=== PATIENT | male | born 1930 | race Caucasian/White ===

== ENCOUNTER 2017-12-30 18:52 | Observation (INO) | payer OTHER ==
--- OUTSIDE RECORDS SUMMARY | 2017-12-30 18:54 | XMS REPORT ---
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 Active Medications Medication Code Code Instructions Start End Status Dosage System Date Date Amlodipine [facility] 23373796981 10-40 MG Oral Active TAKE 1 Besy-Benazepril CAPSULE BY HCl MOUTH EVERY DAY Lotrel [facility] 81055357865 10-40 MG Active TAKE 1 CAPSULE BY MOUTH EVERY DAY Singulair [facility] 48745141919 10 MG Orally Active 1 tablet in Once a day the evening Montelukast [facility] 75588887600 10 MG Oral Active 1 TABLET Sodium ORALLY ONCE DAILY FOR ALLERGIES Levothyroxine [facility] 35532221252 88 MCG Orally Active 1 tablet Sodium Once a day orally once daily Ferrous Sulfate [facility] 43946513861 325 (65 Fe) MG Active 1 tablet Orally Three times a day Aspirin Adult [facility] 81541211169 81 MG Orally Active 1 tablet Low Dose Once a day Flonase [facility] 06171622139 50 MCG/ACT Active 1 spray in Nasally Once a each nostril day Imiquimod [facility] 54605286641 5 % External Active APPLY TO THE AFFECTED AREA(S) AT BEDTIME FOR 21 DAYS THEN DISCONTINUE Results No Known Results Summary Purpose [employer]Works Submission
[2017-12-30] MEDS ORDERED: NA CHLORIDE 0.9% 1,000 ML ONE (19:27)
[2017-12-30] MEDS ORDERED: FOLIC ACID 5 MG/ML VIAL ONE (19:28)
[2017-12-30] MEDS ORDERED: NA CHLORIDE 0.9% 50 ML IV ONE (19:28)
--- NOTE | 2017-12-30 19:32 | RAD REPORT ---
EXAM DESCRIPTION: CT - Ct Stroke Brain Wo Cont - 12/30/2017 7:24 pm CLINICAL HISTORY: Weakness, dizziness, double vision CLINICAL HISTORY: None. TECHNIQUE: Axial 5 millimeter thick images of the head were obtained without IV contrast. All CT scans are performed using dose optimization technique as appropriate and may include automated exposure control or mA/KV adjustment according to patient size. FINDINGS: No intracranial hemorrhage, mass, or cerebral edema. No acute cortical based infarction is identifiable. There is no cortical edema or sulcal effacement. Patient has moderate severity atrophy with ventricular size in proportion. Moderate severity chronic ischemic changes are present. Chronic ischemic changes can be easily mask nonhemorrhagic infarction. No extra-axial fluid collections. Gr ay matter-white matter differentiation is preserved. No globe or orbital content abnormality. Visualized portions of the mastoid air cells, paranasal sinuses, and orbits are unremarkable. IMPRESSION: No hemorrhage is present and no acute cortical based infarction identifiable. Moderate severity atrophy and chronic ischemic changes are present. Chronic ischemic changes can mask nonhemorrhagic acute infarction. MR brain followup can be obtained if there is ongoing concern for acute ischemia.
[2017-12-30] MEDS ORDERED: ASPIRIN 81 MG CHEWABLE TABLET ONE (19:42)
[2017-12-30] MEDS ORDERED: CLOPIDOGREL 75 MG TABLET ONE (19:42)
--- NOTE | 2017-12-30 20:17 | RAD REPORT ---
EXAM DESCRIPTION: MRI - Brain Wo Cont - 12/30/2017 7:51 pm CLINICAL HISTORY: CVA, stroke-like symptoms, diplopia COMPARISON: CT head December 30 TECHNIQUE: Sagittal T1-weighted images were obtained along with axial PD, heavily T2-weighted and T2 -FLAIR images. Axial DWI and ADC mapping sequences were also obtained along with coronal heavily T2-w eighted images. FINDINGS: No intracranial hemorrhage, mass or acute infarction. There is no edema or shift of midlin e structures. No extra-axial fluid collections. Vernon-matter/white matter junction is preserved. Signa l voids are seen as a normal finding in the major intracranial vessels. Moderate atrophy and chronic ischemic changes are again noted. Ventricular size is in proportion. No globe or orbital content abnormality. No sella or supra sella abnormality. Mastoid air cells and paranasal sinuses are clear. IMPRESSION: No acute infarction change. No hemorrhage, mass or acute intracranial finding. Moderate severity atrophy and chronic ischemic change.
[2017-12-30 20:29] LABS: Urine Blood NEGATIVE (NEG); Urine Glucose NEGATIVE (NEG); Urine Protein 2+ (NEG); Urine Specific Gravity 1.025 (1.005-1.030)
--- NOTE | 2017-12-30 20:48 | RAD REPORT ---
EXAM DESCRIPTION: RAD - Chest Single View - 12/30/2017 8:13 pm CLINICAL HISTORY: Code stroke chest film, double vision COMPARISON: September 2004 TECHNIQUE: AP portable chest image was obtained 1913 hours . FINDINGS: No failure, infiltrate or mass. Lung markings are prominent, mildly progressive from 2004. An acute interstitial process is unlikely. Minimal interstitial edema or infiltrate could be masked by the chronic pattern. Heart and vasculature are normal. No measurable pleural effusion and no pneum othorax. No gross bony abnormality seen. No acute aortic findings suspected. IMPRESSION: No acute cardiopulmonary process suspected.
[2017-12-30 20:50] LABS: Absolute Lymphocytes (CBC) 1.4 K/uL (0.7-4.9); Absolute Monocytes 3.7 K/uL (0.1-1.3); Absolute Neutrophil 12.5 K/uL (1.8-8.0); Basophils % 0.7 % (0-1.3); Eosinophils % 0.7 % (0-4.4); Hematocrit 40.5 % (39.6-49.0); MCH 22.8 pg (27.0-35.0); MCV 69.8 fL (80-100); MPV 9.1 fL (7.6-11.3); Monocytes % 20.7 % (3.3-12.3); RBC Red Blood Cell Count 5.81 M/uL (4.33-5.43)
[2017-12-30 20:56] LABS: Protime INR 1.16
[2017-12-30 21:02] LABS: ALT/SGPT 22 U/L (12-78); AST/SGOT 24 U/L (15-37); Albumin 4.3 g/dL (3.4-5.0); Alkaline Phosphatase 91 U/L (45-117); BUN Blood Urea Nitrogen 26 mg/dL (7-18); Bicarbonate 28 mmol/L (21-32); Bilirubin Direct < 0.1 mg/dL (0-0.2); Bilirubin Total 0.4 mg/dL (0.2-1.0); CKMB Creatine Kinase MB < 1.0 ng/mL (0.3-3.6); Creatine Phosphokinase 25 U/L (39-308); Glucose Level 114 mg/dL (74-106); Magnesium 2.7 mg/dL (1.8-2.4); NT PRO-BNP 973 pg/mL (<450); Potassium 4.7 mmol/L (3.5-5.1); Protein, Total 8.2 g/dL (6.4-8.2); Sodium Level 141 mmol/L (136-145)
[2017-12-30] MEDS ORDERED: CEFTRIAXONE/SWI 1gm 1 GM/10 ML SYR ONE (21:15)
[2017-12-30 21:30] LABS: Blood Morphology Comment NOTED (NOT SEEN); Platelet Estimate ADEQ
--- NOTE | 2017-12-30 21:37 | EDPHYS ---
Physician Documentation [facility] Name: Pushpa Smith Age: 87 yrs Sex: Male : 1930 Arrival Date: 12/30/2017 Time: 18:56 Bed 20 Private MD: Delgado Patel ED Physician Remigio Bean HPI: 12/30 19:13 This 87 yrs old Male presents to ER via Unassigned with complaints of gabino Dizziness, DOUBLE VISION. 19:13 The patient presents with dizziness, lightheadedness. Onset: The symptoms/episode gabino began/occurred just prior to arrival. Context: occurred while the patient was sitting in a car. Modifying factors: The symptoms are alleviated by nothing, the symptoms are aggravated by nothing. Associated signs and symptoms: The patient has no apparent associated signs or symptoms. Severity of symptoms: At their worst the symptoms were mild in the emergency department the symptoms are unchanged. Patient's baseline: Neuro: alert and fully oriented. The patient has not experienced similar symptoms in the past. Historical: - Allergies: 19:17 No Known Allergies; bb - Home Meds: 19:17 HTN med unknown [Active]; Thyroid med unknown [Active]; bb - PMHx: 19:17 Cancer; Hypertension; Hypothyroidism; bb - PSHx: 19:17 Appendectomy; surgery to face for removal of lymph nodes; bb - Immunization history:: Adult Immunizations up to date. - Social history:: Smoking status: Patient/guardian denies using tobacco, Patient uses alcohol, but reports only rare drinking. - Family history:: not pertinent. - Ebola Screening: : No symptoms or risks identified at this time. ROS: 19:13 Constitutional: Negative for fever, chills, and weight loss, Eyes: Negative for injury, gabino pain, redness, and discharge, ENT: Negative for injury, pain, and discharge, Neck: Negative for injury, pain, and swelling, Cardiovascular: Negative for chest pain, palpitations, and edema, Respiratory: Negative for shortness of breath, cough, wheezing, and pleuritic chest pain, Abdomen/GI: Negative for abdominal pain, nausea, vomiting, diarrhea, and constipation, Back: Negative for injury and pain, : Negative for injury, bleeding, discharge, and swelling, MS/Extremity: Negative for injury and deformity, Skin: Negative for injury, rash, and discoloration, Psych: Negative for depression, anxiety, suicide ideation, homicidal ideation, and hallucinations, Allergy/Immunology: Negative for hives, rash, and allergies, Endocrine: Negative for neck swelling, polydipsia, polyuria, polyphagia, and marked weight changes, Hematologic/Lymphatic: Negative for swollen nodes, abnormal bleeding, and unusual bruising. 19:13 Neuro: Positive for dizziness, visual changes. Exam: 19:13 Constitutional: This is a well developed, well nourished patient who is awake, alert, gabino and in no acute distress. Head/Face: Normocephalic, atraumatic. Eyes: Pupils equal round and reactive to light, extra-ocular motions intact. Lids and lashes normal. Conjunctiva and sclera are non-icteric and not injected. Cornea within normal limits. Periorbital areas with no swelling, redness, or edema. ENT: Nares patent. No nasal discharge, no septal abnormalities noted. Tympanic membranes are normal and external auditory canals are clear. Oropharynx with no redness, swelling, or masses, exudates, or evidence of obstruction, uvula midline. Mucous membranes moist. Neck: Trachea midline, no thyromegaly or masses palpated, and no cervical lymphadenopathy. Supple, full range of motion without nuchal rigidity, or vertebral point tenderness. No Meningismus. Chest/axilla: Normal chest wall appearance and motion. Nontender with no deformity. No lesions are appreciated. Cardiovascular: Regular rate and rhythm with a normal S1 and S2. No gallops, murmurs, or rubs. Normal PMI, no JVD. No pulse deficits. Respiratory: Lungs have equal breath sounds bilaterally, clear to auscultation and percussion. No rales, rhonchi or wheezes noted. No increased work of breathing, no retractions or nasal flaring. Abdomen/GI: Soft, non-tender, with normal bowel sounds. No distension or tympany. No guarding or rebound. No evidence of tenderness throughout. Back: No spinal tenderness. No costovertebral tenderness. Full range of motion. Male : Normal genitalia with no discharge or lesions. Skin: Warm, dry with normal turgor. Normal color with no rashes, no lesions, and no evidence of cellulitis. MS/ Extremity: Pulses equal, no cyanosis. Neurovascular intact. Full, normal range of motion. Neuro: Awake and alert, GCS 15, oriented to person, place, time, and situation. Cranial nerves II-XII grossly intact. Motor strength 5/5 in all extremities. Sensory grossly intact. Cerebellar exam normal. Normal gait. Psych: Awake, alert, with orientation to person, place and time. Behavior, mood, and affect are within normal limits. 19:16 Neuro: Mentation: is normal, appropriate for stated age, no acute changes, Memory: is gabino normal, appropriate for stated age, no acute changes, Cranial nerves: grossly normal, is grossly normal based on the patient's age, no acute changes, Cerebellar function: is grossly normal, is grossly normal based on the patient's age, no acute changes, Motor: is normal, is grossly normal based on the patient's age, Sensation: is normal, no obvious gross deficits, appropriate Gait: not applicable unable to assess, is steady, Deep tendon reflexes are normal, 2+ (normal) in the bilateral brachioradialis, bicep, tricep and patellar and Achilles tendons, Babinski testing is normal, seizure activity, is not displayed by the patient. 19:18 Neuro: Orientation: is normal, appropriate for stated age, no acute changes, to person, gabino place, time \T\ situation. pt at baseline. not a tpa candidate. Vital Signs: 19:17 BP 177 / 70; Pulse 74; Resp 16 S; Temp 98.8(O); Pulse Ox 97% on R/A; Weight 72.57 kg bb (R); Height 5 ft. 9 in. (175.26 cm) (R); Pain 0/10; 20:29 BP 173 / 81; Pulse 67; Resp 16; Pulse Ox 99% on R/A; Pain 0/10; ak1 21:20 BP 158 / 57; Pulse 84; Resp 19; Pulse Ox 100% on R/A; Pain 0/10; ak1 19:17 Body Mass Index 23.63 (72.57 kg, 175.26 cm) bb NIH Stroke Scale Scores: 19:16 NIHSS Score: 0 gabino 19:35 NIHSS Score: 0 ak1 MDM: 19:07 Patient medically screened. [facility] 19:20 Data reviewed: vital signs, nurses notes, lab test result(s), EKG, radiologic studies, gabino CT scan, MRI, plain films. 12/30 19:13 Order name: Basic Metabolic Panel; Complete Time: 21:34 [facility] 12/30 19:13 Order name: CBC with Diff; Complete Time: 21:34 [facility] 12/30 19:13 Order name: Ckmb; Complete Time: 21:34 [facility] 12/30 19:13 Order name: CPK; Complete Time: 21:34 [facility] 12/30 19:13 Order name: LFT's; Complete Time: 21:34 [facility] 12/30 19:13 Order name: Magnesium; Complete Time: 21:34 [facility] 12/30 19:13 Order name: NT PRO-BNP; Complete Time: 21:34 [facility] 12/30 19:13 Order name: PT-INR; Complete Time: 21:34 [facility] 12/30 19:13 Order name: Ptt, Activated; Complete Time: 21:34 [facility] 12/30 19:13 Order name: Troponin (emerg Dept Use Only); Complete Time: 20:57 [facility] 12/30 19:13 Order name: Urine Culture [facility] 12/30 20:26 Order name: Urine Dipstick--Ancillary (enter results); Complete Time: 20:57 12/30 20:53 Order name: Manual Differential; Complete Time: 21:34 [facility] 12/30 20:59 Order name: Blood Culture Adult (2) [facility] 12/30 19:13 Order name: XRAY Chest (1 view); Complete Time: 20:57 [facility] 12/30 19:13 Order name: CT Stroke Brain w/o Contrast; Complete Time: 19:51 [facility] 12/30 19:13 Order name: MRI - Brain Wo Cont; Complete Time: 20:24 [facility] 12/30 21:42 Order name: Basic Metabolic Panel [facility] 12/30 21:42 Order name: Basic Metabolic Panel [facility] 12/30 21:42 Order name: CBC with Automated Diff [facility] 12/30 21:42 Order name: CBC with Automated Diff [facility] 12/30 21:42 Order name: Troponin I [facility] 12/30 21:42 Order name: Troponin I [facility] 12/30 21:42 Order name: Troponin I [facility] 12/30 21:51 Order name: US Rp Exam Complete [facility] 12/30 19:13 Order name: EKG; Complete Time: 19:14 [facility] 12/30 19:13 Order name: Cardiac monitoring; Complete Time: 20:23 [facility] 12/30 19:13 Order name: EKG - Nurse/Tech; Complete Time: 20:41 [facility] 12/30 19:13 Order name: IV Saline Lock; Complete Time: 20:23 [facility] 12/30 19:13 Order name: Labs collected and sent; Complete Time: 20:23 [facility] 12/30 19:13 Order name: O2 Per Protocol; Complete Time: 19:19 [facility] 12/30 19:13 Order name: O2 Sat Monitoring; Complete Time: 19:19 [facility] 12/30 19:13 Order name: Urine Dipstick-Ancillary (obtain specimen); Complete Time: 20:23 [facility] 12/30 21:42 Order name: CONS Physician Consult EDMS 12/30 21:42 Order name: Regular EDMS 12/30 21:42 Order name: EKG Electrocardiogram EDMS 12/30 21:42 Order name: EKG Electrocardiogram EDMS 12/30 21:42 Order name: EKG Electrocardiogram EDMS 12/30 21:42 Order name: EKG Electrocardiogram EDMS Administered Medications: 20:22 Drug: NS 0.9% 1000 ml Route: IV; Rate: 1 bolus; Site: right antecubital; ak1 22:37 Follow up: IV Status: Completed infusion ak1 20:22 Drug: Aspirin 81 mg Route: PO; ak1 20:41 Follow up: Response: No adverse reaction ak1 20:22 Drug: PlaVIX 75 mg Route: PO; ak1 20:41 Follow up: Response: No adverse reaction ak1 20:23 Drug: foLIC Acid 1 mg Route: IVPB; Site: right antecubital; ak1 20:41 Follow up: IV Status: Completed infusion ak1 21:16 Drug: Rocephin - (cefTRIAXone) 1 grams Route: IVPB; Infused Over: 30 mins; Site: right ak1 antecubital; 21:41 Follow up: IV Status: Completed infusion ak1 Point of Care Testing: Blood Glucose: 20:29 Blood Glucose: 107 mg/dL; ak1 Ranges: Critical Glucose Levels:Adult <50 mg/dl or >400 mg/dl <40 mg/dl or >180 mg/dl Disposition: 12/30/17 21:36 Hospitalization ordered by Delgado Patel for Observation. Preliminary diagnosis are Diplopia, Elevated white blood cell count, Unspecified kidney failure. - Bed requested for Telemetry/MedSurg (observation). - Status is Observation. ak1 - Condition is Stable. - Problem is new. - Symptoms have improved. UTI on Admission? No NIH Stroke Scale - NIH Stroke Score Date: 12/30/2017 Time: 19:16 Total Score = 0 1a. Level of Consciousness (LOC) - 0(Alert) 1b. Level of Consciousness (LOC) (Year \T\ Age) - 0(Both) 1c. LOC Commands (Open \T\ Closes Eyes/Veterinary Inspector) - 0(Both) 2. Best Gaze (Lateral Gaze Paresis) - 0(Normal) 3. Visual Field Loss - 0(No visual loss) 4. Facial Palsy - 0(Normal) 5a. Left Arm: Motor (10-second hold) - 0(No drift) 5b. Right Arm: Motor (10-second hold) - 0(No drift) 6a. Left Leg: Motor (5-second hold - always test supine) - 0(No drift) 6b. Right Leg: Motor (5-second hold - always test supine) - 0(No drift) 7. Limb Ataxia (finger/nose \T\ heel/gunter - test with eyes open) - 0(Absent) 8. Sensory Loss (pinprick arms/legs/face) - 0(Normal) 9. Best Language: Aphasia (description/naming/reading) - 0(No aphasia) 10. Dysarthria (speech clarity - read or repeat words) - 0(Normal) 11. Extinction and Inattention (visual/tactile/auditory/spatial/personal) - 0(No abnormality) Initials: [facility] NIH Stroke Scale - NIH Stroke Score Date: 12/30/2017 Time: 19:35 Total Score = 0 1a. Level of Consciousness (LOC) - 0(Alert) 1b. Level of Consciousness (LOC) (Year \T\ Age) - 0(Both) 1c. LOC Commands (Open \T\ Closes Eyes/Veterinary Inspector) - 0(Both) 2. Best Gaze (Lateral Gaze Paresis) - 0(Normal) 3. Visual Field Loss - 0(No visual loss) 4. Facial Palsy - 0(Normal) 5a. Left Arm: Motor (10-second hold) - 0(No drift) 5b. Right Arm: Motor (10-second hold) - 0(No drift) 6a. Left Leg: Motor (5-second hold - always test supine) - 0(No drift) 6b. Right Leg: Motor (5-second hold - always test supine) - 0(No drift) 7. Limb Ataxia (finger/nose \T\ heel/gunter - test with eyes open) - 0(Absent) 8. Sensory Loss (pinprick arms/legs/face) - 0(Normal) 9. Best Language: Aphasia (description/naming/reading) - 0(No aphasia) 10. Dysarthria (speech clarity - read or repeat words) - 0(Normal) 11. Extinction and Inattention (visual/tactile/auditory/spatial/personal) - 0(No abnormality) Initials: ak1 Signatures: Dispatcher [employer] EDMS Remigio Bean MD MD cha Ballard, Brenda RN RN Sejal Lopez RN RN Sarah Wolf mt Corrections: (The following items were deleted from the chart) 21:51 21:36 Hospitalization Ordered by Delgado Patel MD for Observation. Preliminary mt diagnosis is Diplopia; Elevated white blood cell count; Unspecified kidney failure. Bed requested for Telemetry/MedSurg (observation). Status is Observation. Condition is Stable. Problem is new. Symptoms have improved. UTI on Admission? No. [facility] 22:36 21:51 12/30/2017 21:36 Hospitalization Ordered by Delgado Patel MD for ak1 Observation. Preliminary diagnosis is Diplopia; Elevated white blood cell count; Unspecified kidney failure. Bed requested for Telemetry/MedSurg (observation). Status is Observation. Condition is Stable. Problem is new. Symptoms have improved. UTI on Admission? No. mt
--- NOTE | 2017-12-30 21:37 | ER ---
Nurse's Notes [facility] Name: Pushpa Smith Age: 87 yrs Sex: Male : 1930 Arrival Date: 12/30/2017 Time: 18:56 Bed 20 Private MD: Delgado Patel Diagnosis: Diplopia;Elevated white blood cell count;Unspecified kidney failure Presentation: 12/30 19:05 Presenting complaint: Patient states: he had eaten lunch with a friend then they were bb sitting in the truck and he started c/o feeling hot, light-headed and was having double vision pt states dbl [place] had resolved on his arrival to ED. Transition of care: patient was not received from another setting of care. Onset of symptoms was December 30, 2017. Risk Assessment: Do you want to hurt yourself or someone else? Patient reports no desire to harm self or others. Initial Sepsis Screen: Does the patient meet any 2 criteria? No. Patient's initial sepsis screen is negative. Does the patient have a suspected source of infection? No. Patient's initial sepsis screen is negative. Care prior to arrival: None. 19:05 Method Of Arrival: Ambulatory bb 19:05 Acuity: LUISITO 2 bb Historical: - Allergies: 19:17 No Known Allergies; bb - Home Meds: 19:17 HTN med unknown [Active]; Thyroid med unknown [Active]; bb - PMHx: 19:17 Cancer; Hypertension; Hypothyroidism; bb - PSHx: 19:17 Appendectomy; surgery to face for removal of lymph nodes; bb - Immunization history:: Adult Immunizations up to date. - Social history:: Smoking status: Patient/guardian denies using tobacco, Patient uses alcohol, but reports only rare drinking. - Family history:: not pertinent. - Ebola Screening: : No symptoms or risks identified at this time. Screenin:35 Abuse screen: Denies threats or abuse. Denies injuries from another. Nutritional ak1 screening: No deficits noted. Tuberculosis screening: No symptoms or risk factors identified. The patient has not been NPO before screening. The patient is alert, able to follow commands. The patient does not exhibit slurred or garbled speech The patient is not exhibiting difficulty speaking. The patient does not exhibit difficulty understanding words. The patient is able to swallow own secretions with no drooling or need for suction. Patient tolerated one teaspoon of water. No drooling, immediate coughing, gurgling, or clearing of the throat was noted. The patient tolerated 90mL of water. No drooling, immediate coughing, gurgling, or clearing of the throat was noted. The patient passed the bedside swallow screening. Oral medications may be given as ordered. Contact Physician for further diet orders. Provider notified of bedside swallow screening results: Remigio Bean MD. Fall Risk None identified. Assessment: 19:05 General: Appears in no apparent distress. Behavior is calm, cooperative. Pain: Denies bb pain. Neuro: Level of Consciousness is awake, alert, obeys commands, Oriented to person, place, time, situation, Speech is normal. 19:36 General: Appears in no apparent distress. Behavior is calm, cooperative. Pain: Denies ak1 pain. Neuro: Level of Consciousness is awake, alert, obeys commands, Oriented to person, place, time, situation, Loan Processing Supervisor are equal bilaterally Moves all extremities. Gait is steady, Speech is normal, Facial symmetry appears normal, Pupils are PERRLA. Cardiovascular: No deficits noted. Respiratory: No deficits noted. GI: No signs and/or symptoms were reported involving the gastrointestinal system. : No signs and/or symptoms were reported regarding the genitourinary system. EENT: No signs and/or symptoms were reported regarding the EENT system. Derm: No signs and/or symptoms reported regarding the dermatologic system. Musculoskeletal: No signs and/or symptoms reported regarding the musculoskeletal system. 20:06 Reassessment: pt remains in CT and MRI. ak1 21:19 Reassessment: Patient appears in no apparent distress at this time. No changes from ak1 previously documented assessment. Patient is alert, oriented x 3, equal unlabored respirations, skin warm/dry/pink. Patient states feeling better. Patient states symptoms have improved. Vital Signs: 19:17 BP 177 / 70; Pulse 74; Resp 16 S; Temp 98.8(O); Pulse Ox 97% on R/A; Weight 72.57 kg bb (R); Height 5 ft. 9 in. (175.26 cm) (R); Pain 0/10; 20:29 BP 173 / 81; Pulse 67; Resp 16; Pulse Ox 99% on R/A; Pain 0/10; ak1 21:20 BP 158 / 57; Pulse 84; Resp 19; Pulse Ox 100% on R/A; Pain 0/10; ak1 19:17 Body Mass Index 23.63 (72.57 kg, 175.26 cm) bb NIH Stroke Scale Scores: 19:16 NIHSS Score: 0 gabino 19:35 NIHSS Score: 0 ak1 ED Course: 18:56 Patient arrived in ED. sb2 18:56 Delgado Patel MD is Private Physician. sb2 19:04 Sejal Poon, RN is Primary Nurse. ak1 19:05 Arm band placed on Patient placed in an exam room, on a stretcher. bb 19:07 Remigio Bean MD is Attending Physician. gabino 19:[address] kw1 19:16 Triage completed. bb 19:21 CT completed. kw1 19:24 CT Stroke Brain w/o Contrast In Process Unspecified. EDMS 19:24 Patient moved to MRI. kw1 19:35 Patient has correct armband on for positive identification. Placed in gown. Bed in low ak1 position. Call light in reach. Side rails up X 1. conveyor monitor on. Pulse ox on. NIBP on. 19:50 MRI - Brain Wo Cont In Process Unspecified. EDMS 19:50 MRI completed. Patient tolerated well. Patient moved to radiology via stretcher. em2 20:11 X-ray completed. Patient tolerated procedure well. Patient moved back from radiology. mh1 20:11 XRAY Chest (1 view) In Process Unspecified. EDMS 20:24 Inserted saline lock: 20 gauge in right antecubital area, using aseptic technique. ak1 Blood collected. 21:35 Delgado Patel MD is Hospitalizing Provider. gabino 21:40 No provider procedures requiring assistance completed. Patient admitted, IV remains in ak1 place. Administered Medications: 20:22 Drug: NS 0.9% 1000 ml Route: IV; Rate: 1 bolus; Site: right antecubital; ak1 22:37 Follow up: IV Status: Completed infusion ak1 20:22 Drug: Aspirin 81 mg Route: PO; ak1 20:41 Follow up: Response: No adverse reaction ak1 20:22 Drug: PlaVIX 75 mg Route: PO; ak1 20:41 Follow up: Response: No adverse reaction ak1 20:23 Drug: foLIC Acid 1 mg Route: IVPB; Site: right antecubital; ak1 20:41 Follow up: IV Status: Completed infusion ak1 21:16 Drug: Rocephin - (cefTRIAXone) 1 grams Route: IVPB; Infused Over: 30 mins; Site: right ak1 antecubital; 21:41 Follow up: IV Status: Completed infusion ak1 Point of Care Testing: Blood Glucose: 20:29 Blood Glucose: 107 mg/dL; ak1 Ranges: Outcome: 21:36 Decision to Hospitalize by Provider. [facility] 22:35 Admitted to Tele accompanied by tech, family with patient, via wheelchair, room 410, ak1 with chart, Report called to Desi 22:35 Condition: good 22:35 Discharge instructions given to Instructed on the need for admit. 22:36 Patient left the ED. ak1 NIH Stroke Scale - NIH Stroke Score Date: 12/30/2017 Time: 19:16 Total Score = 0 1a. Level of Consciousness (LOC) - 0(Alert) 1b. Level of Consciousness (LOC) (Year \T\ Age) - 0(Both) 1c. LOC Commands (Open \T\ Closes Eyes/Tilt Wall Supervisor) - 0(Both) 2. Best Gaze (Lateral Gaze Paresis) - 0(Normal) 3. Visual Field Loss - 0(No visual loss) 4. Facial Palsy - 0(Normal) 5a. Left Arm: Motor (10-second hold) - 0(No drift) 5b. Right Arm: Motor (10-second hold) - 0(No drift) 6a. Left Leg: Motor (5-second hold - always test supine) - 0(No drift) 6b. Right Leg: Motor (5-second hold - always test supine) - 0(No drift) 7. Limb Ataxia (finger/nose \T\ heel/gunter - test with eyes open) - 0(Absent) 8. Sensory Loss (pinprick arms/legs/face) - 0(Normal) 9. Best Language: Aphasia (description/naming/reading) - 0(No aphasia) 10. Dysarthria (speech clarity - read or repeat words) - 0(Normal) 11. Extinction and Inattention (visual/tactile/auditory/spatial/personal) - 0(No abnormality) Initials: [facility] NIH Stroke Scale - NIH Stroke Score Date: 12/30/2017 Time: 19:35 Total Score = 0 1a. Level of Consciousness (LOC) - 0(Alert) 1b. Level of Consciousness (LOC) (Year \T\ Age) - 0(Both) 1c. LOC Commands (Open \T\ Closes Eyes/Tilt Wall Supervisor) - 0(Both) 2. Best Gaze (Lateral Gaze Paresis) - 0(Normal) 3. Visual Field Loss - 0(No visual loss) 4. Facial Palsy - 0(Normal) 5a. Left Arm: Motor (10-second hold) - 0(No drift) 5b. Right Arm: Motor (10-second hold) - 0(No drift) 6a. Left Leg: Motor (5-second hold - always test supine) - 0(No drift) 6b. Right Leg: Motor (5-second hold - always test supine) - 0(No drift) 7. Limb Ataxia (finger/nose \T\ heel/gunter - test with eyes open) - 0(Absent) 8. Sensory Loss (pinprick arms/legs/face) - 0(Normal) 9. Best Language: Aphasia (description/naming/reading) - 0(No aphasia) 10. Dysarthria (speech clarity - read or repeat words) - 0(Normal) 11. Extinction and Inattention (visual/tactile/auditory/spatial/personal) - 0(No abnormality) Initials: ak1 Signatures: Dispatcher [employer] Remigio Davison MD MD cha Harvey, Martha 1 Sveta Smith, Fred Montenegro RN, Amber, RN RN ak1 Lory De La Garza1 Nimisha Pitts2
[2017-12-30] MEDS ORDERED: ACETAMINOPHEN 500 MG TAB PO PRN (21:39)
[2017-12-30] MEDS ORDERED: ONDANSETRON 4 MG/2 ML VIAL IV PRN (21:39)
[2017-12-30] MEDS: NA CHLORIDE 0.9% 1,000 ML IV SCH (23:29)
[2017-12-31 04:38] LABS: Absolute Lymphocytes (CBC) 2.2 K/uL (0.7-4.9); Absolute Monocytes 3.6 K/uL (0.1-1.3); Absolute Neutrophil 11.9 K/uL (1.8-8.0); Basophils % 0.6 % (0-1.3); Eosinophils % 0.8 % (0-4.4); Hematocrit 37.2 % (39.6-49.0); Lymphocytes % 12.3 % (15.3-44.8); MCH 22.6 pg (27.0-35.0); MCV 68.9 fL (80-100); MPV 9.1 fL (7.6-11.3); RBC Red Blood Cell Count 5.39 M/uL (4.33-5.43)
[2017-12-31 05:39] LABS: Potassium 4.8 mmol/L (3.5-5.1)
--- NOTE | 2017-12-31 06:20 | RAD REPORT ---
EXAM DESCRIPTION: US - Renal Ultrasound-Complete - 12/30/2017 10:26 pm CLINICAL HISTORY: Renal failure A preliminary report was provided at the time of the study and reviewed prior to final dictation. COMPARISON: December 2013 FINDINGS: The right kidney measures 10.9 x 5.6 x 4.7 cm. The left kidney measures 10.5 x 5.8 x 4.6 cm. Renal cortical thickness is normal. There is a slight increase in cortical echogenicity. This is nonspecific but can indicate medical renal disease. No hydronephrosis or suspicious renal mass. A 3. 5 centimeter thin-walled anechoic cyst is present lateral left kidney. An additional 8 millimeter co rtical cyst is present upper pole left kidney. These are new or larger from 2014 but still show benig n characteristics. No bladder wall thickening or mass. No intraluminal stone or mass. IMPRESSION: No hydronephrosis or suspicious renal mass. Benign left renal cysts. No other significant findings.
[2017-12-31] MEDS ORDERED: CLOPIDOGREL 75 MG TABLET PO SCH (09:00)
[2017-12-31] MEDS ORDERED: ASPIRIN EC 81 MG TAB PO SCH (09:00)
[2017-12-31] MEDS ORDERED: FOLIC ACID 1 MG in NA CHLORIDE 0.9% 50 ML IV SCH (09:00)
--- NOTE | 2017-12-31 09:38 | EKG ---
Test Date: 2017-12-30 Test Time: 20:34:33 Room Manager: ALBINA MEASUREMENT RESULTS: Intervals: Rate: 66 TX: 210 QRSD: 100 QT: 408 QTc: 427 [place]: P: 63 TX: 210 QRS: -47 T: 85 INTERPRETIVE STATEMENTS: Sinus rhythm with 1st degree AV block Left axis deviation Moderate voltage criteria for LVH, may be normal variant Anterior infarct Abnormal ECG Compared to ECG 11/30/2012 08:33:21 no significant change from previous ECG Electronically Signed On 12-31-17 09:38:30 CDT by Nathen Garvey
--- NOTE | 2017-12-31 09:38 | EKG ---
Test Date: 2017-12-31 Test Time: 07:27:07 Compounding Technician: CANELO MEASUREMENT RESULTS: Intervals: Rate: 63 ND: 214 QRSD: 90 QT: 406 QTc: 415 [place]: P: 48 ND: 214 QRS: -41 T: 100 INTERPRETIVE STATEMENTS: Sinus rhythm with marked sinus arrhythmia with 1st degree AV block Left axis deviation Anterior infarct, cited 2013 Abnormal ECG Compared to ECG 11/30/2012 08:33:21 no significant change from previous ECG Electronically Signed On 12-31-17 09:37:46 CDT by Nathen Garvey
--- NOTE | 2017-12-31 10:02 | P.SSS ---
Patient History Date of Service: 12/31/17 Primary Care Provider: Amanda Reason for admission: Diplopia History of Present Illness: Patient was driving home last night. [place] some dizziness and pulled. Over he was having some diplopia for 15 min. He decided to have his friend bring him to the ER. He has never had this before. He has not had any other symptoms since the initial presentation. CT and MRI are negative Allergies No Known Allergies Allergy (Unverified 12/30/17 21:46) Home medications list reviewed: Yes Home Medications: Levothyroxine [Synthroid*] 1 tab PO DAILY 12/30/17 Aspirin [Aspirin EC 81 MG] 1 tab PO DAILY #90 tablet. 12/31/17 - Past Medical/Surgical History Has patient received pneumonia vaccine in the past: Yes Diabetic: No -: HTN -: hypothyroidism -: multiple skin cancer -: hep C - Social History Smoking Status: Current every day smoker Alcohol use: No CD- Drugs: No Place of Residence: Home Review of Systems 10-point ROS is otherwise unremarkable General: Other (diplopia) Physical Examination - Vital Signs Temperature: 97.3 F Blood Pressure: 168/72 Pulse: 69 Respirations: 18 Pulse Ox (%): 96 - Physical Exam General: Alert, In no apparent distress HEENT: Atraumatic, PERRLA, Mucous membr. moist/pink, EOMI, Sclerae nonicteric Neck: Supple, 2+ carotid pulse no bruit, No LAD, Without JVD or thyroid abnormality Respiratory: Clear to auscultation bilaterally, Normal air movement Cardiovascular: Regular rate/rhythm, Normal S1 S2 Gastrointestinal: Normal bowel sounds, No tenderness Musculoskeletal: No tenderness Integumentary: No rashes Neurological: Normal gait, Normal speech, Normal strength at 5/5 x4 extr, Normal tone, Normal affect Lymphatics: No axilla or inguinal lymphadenopathy - Studies Laboratory Data (last 24 hrs) 12/30/17 20:15: PT 13.7 H, INR 1.16, APTT 31.1 12/30/17 20:15: WBC 17.9 H, Hgb 13.2 L, Hct 40.5, Plt Count 650 H 12/30/17 20:15: Sodium 141, Potassium 4.7, BUN 26 H, Creatinine 2.00 H, Glucose 114 H, Magnesium 2.7 H, Total Bilirubin 0.4, AST 24, ALT 22, Alkaline Phosphatase 91 - Diagnosis (Problem(s)) (1) Diplopia Onset Date: 12/31/17 Current Visit: Yes Status: Acute Plan: Patient has no symptoms. We can complete the work up as an outpatient. Will have Dr. Mckinnon look at the patient. If no complaints we can discharge and have him follow up as an outpatient. - Disposition Disposition: ROUTINE DISCHARGE Condition: GOOD Diet: Regular Activity: Ad alex Physician Review: Patient Assessed, Agree with Above Assessment and Plan Critical Care: No Time Spent Managing Pts Care (In Minutes): 30
[2017-12-31] MEDS: NA CHLORIDE 0.9% 1,000 ML IV SCH (10:10)
[2017-12-31] MEDS ORDERED: ENOXAPARIN 30 MG/0.3 ML SQ SCH (17:00)
[2018-01-01] MEDS ORDERED: PANTOPRAZOLE 40MG TABLET PO SCH (06:30)
== END 2017-12-31 14:31 | disposition home or self-care (01) ==
LOC: ER 18:52 → ERHOLD 21:37 → 4TH 21:54
PROVIDERS: ADMIT Internal Medicine; ATTEND Internal Medicine
DX: H53.2 Diplopia (principal); I10 Essential (primary) hypertension; E03.9 Hypothyroidism, unspecified; B18.2 Chronic viral hepatitis C; F17.200 Nicotine dependence, unspecified, uncomplicated; I44.0 Atrioventricular block, first degree; R42 Dizziness and giddiness; R29.700 NIHSS score 0; N19 Unspecified kidney failure; D72.829 Elevated white blood cell count, unspecified; Z79.82 Long term (current) use of aspirin
CPT/HCPCS: 36415; 70450; 70551; 71045; 76770; 80048 ×2; 80076; 81003; 82550; 82553; 82962; 83735; 83880; 84484 ×3; 85025 ×2; 85610; 85730; 87040 ×2; 87086; 87088; 93005 ×2; 96361; 96365; 96367; 99285; G0378 ×2; J0696; J7030 ×3

== ENCOUNTER 2019-04-21 10:57 | Inpatient (IN) | payer OTHER ==
[2019-04-21 11:56] LABS: Absolute Lymphocytes (CBC) 1.9 K/uL (0.7-4.9); Basophils % 0.6 % (0-1.3); Hematocrit 27.4 % (39.6-49.0); Lymphocytes % 3.2 % (15.3-44.8); MPV 8.5 fL (7.6-11.3); RBC Red Blood Cell Count 3.63 M/uL (4.33-5.43)
[2019-04-21 12:03] LABS: Protime INR 1.25
[2019-04-21 12:25] LABS: ALT/SGPT 34 U/L (12-78); AST/SGOT 28 U/L (15-37); Albumin 2.9 g/dL (3.4-5.0); Alkaline Phosphatase 150 U/L (45-117); BUN Blood Urea Nitrogen 45 mg/dL (7-18); Bicarbonate 21 mmol/L (21-32); Bilirubin Direct 0.1 mg/dL (0-0.2); Bilirubin Total 0.3 mg/dL (0.2-1.0); Glucose Level 106 mg/dL (74-106); Magnesium 2.5 mg/dL (1.8-2.4); NT PRO-BNP 4394 pg/mL (<450); Protein, Total 7.1 g/dL (6.4-8.2); Sodium Level 139 mmol/L (136-145); Troponin (Emerg Dept Use Only) < 0.02 ng/mL (0.0-0.045)
--- NOTE | 2019-04-21 12:26 | RAD REPORT ---
EXAM DESCRIPTION: Arnaldo Single View04/21/2019 12:05 pm CLINICAL HISTORY: cough COMPARISON: 2018 FINDINGS: Moderate left basilar opacity. The right lung appears clear of acute infiltrate Lungs are hyperaerated Acute infiltrate. The heart is normal size IMPRESSION: Moderate left basilar opacity consistent with pneumonia. This should be followed until i t has cleared to help exclude a post obstructive process/underlying mass
[2019-04-21 12:29] LABS: Potassium 6.3 mmol/L (3.5-5.1)
--- NOTE | 2019-04-21 12:46 | EKG ---
Test Date: 2019-04-21 Test Time: 11:54:45 Loan Operations Specialist: CANELO MEASUREMENT RESULTS: Intervals: Rate: 68 GA: 202 QRSD: 86 QT: 392 QTc: 416 [place]: P: 70 GA: 202 QRS: -33 T: 88 INTERPRETIVE STATEMENTS: Sinus rhythm with marked sinus arrhythmia Left axis deviation Anterior infarct, age undetermined Abnormal ECG Compared to ECG 12/31/2017 07:27:07 First degree AV block no longer present Myocardial infarct finding still present Electronically Signed On 04-21-19 12:45:12 MEDICATION ADMINISTRATION PROFESSIONAL by Nathen Garvey
[2019-04-21] MEDS ORDERED: INSULIN -REGULAR HUMAN 50 UNIT/0.5 ML ML ONE (13:06)
[2019-04-21] MEDS ORDERED: ALBUTEROL 2.5 MG/3 ML NEB SOL ONE (13:06)
[2019-04-21] MEDS ORDERED: CEFTRIAXONE/SWI 1gm 1 GM/10 ML SYR ONE (13:07)
[2019-04-21] MEDS ORDERED: NA CHLORIDE 0.9% 500 ML ONE (13:07)
[2019-04-21] MEDS ORDERED: SOD POLYSTYREN SUL 15 GM/60 ML UCUP ONE (13:07)
[2019-04-21] MEDS ORDERED: D50W 25 GM/50 ML SYRINGE/VIAL IV ONE (13:07)
[2019-04-21 13:09] LABS: Anisocytosis 1+; Blood Morphology Comment NOTED (NOT SEEN); Platelet Estimate INCR
--- NOTE | 2019-04-21 13:19 | ER ---
Nurse's Notes [facility] Name: Pushpa Smith Age: 88 yrs Sex: Male : 1930 Arrival Date: 04/21/2019 Time: 10:59 Bed 4 Private MD: Diagnosis: Pneumonia, unspecified organism;Elevated white blood cell count;Hyperkalemia;Weakness Presentation: 04/21 11:00 Presenting complaint: Pt's son states "he hasn't been eating right for about a year but aa5 here over the last 2 weeks he's been very weak and I know he had a cough recently but Dr. Patel said it was allergies and he doesn't have the cough anymore". Pt denies pain, pt c/o generalized weakness. 11:00 Acuity: LUISITO 3 aa5 11:00 Transition of care: patient was not received from another setting of care. aa5 11:00 Method Of Arrival: Ambulatory aa5 11:00 Onset of symptoms was 2018. Risk Assessment: Do you want to hurt yourself or someone aa5 else? Patient reports no desire to harm self or others. Initial Sepsis Screen: Does the patient meet any 2 criteria? No. Patient's initial sepsis screen is negative. Does the patient have a suspected source of infection? No. Patient's initial sepsis screen is negative. Care prior to arrival: None. Historical: - Allergies: 11:00 No Known Allergies; aa5 - PMHx: 11:00 Hypertension; Hypothyroidism; Skin Cancer; aa5 - PSHx: 11:00 Appendectomy; surgery to face for removal of lymph nodes; Skin Cancer removed; aa5 - Immunization history:: Adult Immunizations up to date. - Ebola Screening: : No symptoms or risks identified at this time. - Social history:: Smoking status: Patient/guardian denies using tobacco. Screenin:50 Abuse screen: Denies threats or abuse. Denies injuries from another. Nutritional sv screening: No deficits noted. Tuberculosis screening: No symptoms or risk factors identified. Fall Risk No fall in past 12 months (0 pts). No secondary diagnosis (0 pts). IV access (20 points). Ambulatory Aid- None/Bed Rest/Nurse Assist (0 pts). Gait- Weak (10 pts.). Mental Status- Oriented to own ability (0 pts). Total Bowman Fall Scale indicates Low Risk Score (25-44 pts). Fall prevention measures have been instituted. Side Rails Up X 2 Placed close to Nursing Station Frequent Obs/Assesments occuring Family Present and informed to notify staff if they need to leave bedside As available Patient and Family Educated on Fall Prevention Program and strategies. Assessment: 11:50 General: Appears in no apparent distress. comfortable, slender, malnourished, Behavior sv is calm, cooperative, appropriate for age. Pain: Denies pain. Neuro: Level of Consciousness is awake, alert, obeys commands, Oriented to person, place, time, situation, Reports weakness in right arm, left arm, right leg and left leg. Cardiovascular: Heart tones S1 S2 present Capillary refill < 3 seconds in bilateral fingers Patient's skin is warm and dry. Pulses are 3+ in right radial artery and left radial artery Rhythm is sinus arrythmia. Respiratory: Airway is patent Respiratory effort is even, unlabored, Respiratory pattern is regular, symmetrical. Derm: Skin is normal, multiple skin lesions noted. 13:30 Reassessment: Patient appears in no apparent distress at this time. No changes from sv previously documented assessment. Patient and/or family updated on plan of care and expected duration. Pain level reassessed. Patient is alert, oriented x 3, equal unlabored respirations, skin warm/dry/pink. 14:30 Reassessment: Patient appears in no apparent distress at this time. No changes from sv previously documented assessment. Patient and/or family updated on plan of care and expected duration. Pain level reassessed. Patient is alert, oriented x 3, equal unlabored respirations, skin warm/dry/pink. 15:15 Reassessment: Patient appears in no apparent distress at this time. No changes from sv previously documented assessment. Patient and/or family updated on plan of care and expected duration. Pain level reassessed. Patient is alert, oriented x 3, equal unlabored respirations, skin warm/dry/pink. 15:48 Reassessment: Jeni LARKIN called and left voicemail for Dr Chadwick to get admission orders sv placed. 16:00 Reassessment: Patient appears in no apparent distress at this time. No changes from sv previously documented assessment. Patient and/or family updated on plan of care and expected duration. Pain level reassessed. Patient is alert, oriented x 3, equal unlabored respirations, skin warm/dry/pink. 16:50 Reassessment: Patient appears in no apparent distress at this time. Patient and/or sv family updated on plan of care and expected duration. Pain level reassessed. Patient is alert, oriented x 3, equal unlabored respirations, skin warm/dry/pink. Vital Signs: 11:01 BP 122 / 49; Pulse 76; Resp 16 S; Temp 98.3(TE); Pulse Ox 97% on R/A; Pain 0/10; aa5 11:30 BP 125 / 52; Pulse 72; Resp 23; Pulse Ox 100% ; sv 12:00 BP 128 / 45; Pulse 71; Resp 26; Pulse Ox 100% ; sv 13:00 BP 126 / 42; Pulse 74; Resp 20; Pulse Ox 100% ; sv 14:00 BP 124 / 45; Pulse 79; Resp 19; Pulse Ox 99% ; sv 14:30 BP 118 / 41; Pulse 78; Resp 20; Pulse Ox 100% on R/A; sv 15:30 BP 116 / 40; Pulse 74; Resp 18; Pulse Ox 100% ; sv 16:30 BP 111 / 35; Pulse 70; Resp 24; Pulse Ox 99% ; sv 17:00 BP 116 / 42; Pulse 69; Resp 24; Temp 98; Pulse Ox 100% ; sv ED Course: 10:59 Patient arrived in ED. as 11:00 Arm band placed on Patient placed in an exam room, on a stretcher. aa5 11:17 Triage completed. aa5 11:28 Kathy Kapadia FNP-C is [facility]. kb 11:28 Tomás Bernal MD is Attending Physician. kb 11:45 Coni Lester, TRAE is Primary Nurse. sv 11:50 Patient has correct armband on for positive identification. Bed in low position. Call sv light in reach. Side rails up X 1. Adult w/ patient. monitoring tech on. Pulse ox on. NIBP on. Door closed. Warm blanket given. Head of bed elevated. 11:51 Initial lab(s) drawn, by me, sent to lab. Inserted saline lock: 20 gauge in right em1 forearm, using aseptic technique. Blood collected. 12:04 X-ray completed. Patient tolerated procedure well. ml 12:07 XRAY Chest (1 view) In Process Unspecified. EDMS 12:08 Manual Differential Sent. sv 12:09 Awaiting lab results. sv 13:17 Marlon Chadwick is Hospitalizing Provider. kb 14:47 Awaiting bed assignment. sv 16:59 No provider procedures requiring assistance completed. Patient admitted, IV remains in sv place. intact. Administered Medications: 13:30 Drug: Albuterol 2.5 mg Route: Inhalation; sv 13:30 Drug: Albuterol 2.5 mg Route: Inhalation; sv 13:30 Drug: Albuterol 2.5 mg Route: Inhalation; sv 13:30 Drug: NS 0.9% 500 ml Route: IV; Rate: bolus; Site: right forearm; sv 13:30 Drug: Zithromax 500 mg Route: IVPB; Infused Over: 1 hrs; Site: right forearm; sv 14:45 Follow up: Response: No adverse reaction; IV Status: Completed infusion; IV Intake: sv 250ml 13:30 Drug: Rocephin 1 grams Route: IV; Rate: calculated rate; Site: right forearm; sv 13:32 Follow up: Response: No adverse reaction; IV Status: Completed infusion; IV Intake: 10mlsv 13:32 Drug: D50W 50 ml Route: IVP; Site: right forearm; sv 14:03 Follow up: Response: No adverse reaction sv 13:34 Drug: Sodium Bicarbonate 1 amp Route: IVP; Site: right forearm; sv 14:03 Follow up: Response: No adverse reaction sv 13:35 Drug: Insulin Regular Human 10 units {Co-Signature: [email or web address] (Evita Coronado RN).} Route: IVP; sv Site: right forearm; 14:03 Follow up: Response: No adverse reaction sv 14:29 Drug: Kayexalate 30 grams Route: PO; sv 15:48 Follow up: Response: No adverse reaction sv Intake: 13:32 IV: 10ml; Total: 10ml. sv 14:45 IV: 250ml; Total: 260ml. sv Outcome: 13:17 Decision to Hospitalize by Provider. kb 17:00 Admitted to Tele accompanied by tech, via stretcher, room 423, with chart, Report sv called to Kamille LARKIN 17:00 Condition: stable 17:00 Instructed on the need for admit. 17:14 Patient left the ED. sv Signatures: Dispatcher [employer] EDKathy Dimas, WATERWORKS SUPERVISOR-C WATERWORKS SUPERVISOR-Ckb Coni Lester, RN RN Ana Arce Irene, Monae Momin RN, Eric em1 Calderon, Audri, RN RN aa5 Evita Coronado RN [email or web address] Corrections: (The following items were deleted from the chart) 13:39 13:35 Insulin Regular Human 10 units IVP in left forearm iw lukas
--- NOTE | 2019-04-21 13:19 | EDPHYS ---
Physician Documentation [facility] [place] Name: Pushpa Smith Age: 88 yrs Sex: Male : 1930 Arrival Date: 04/21/2019 Time: 10:59 Bed 4 Private MD: ED Physician Tomás Bernal HPI: 04/21 14:33 This 88 yrs old Male presents to ER via Ambulatory with complaints of Cough, kb Weakness. 14:33 The patient presents with generalized weakness. Onset: The symptoms/episode kb began/occurred 1 month(s) ago, and became worse. Context: occurred at home. Modifying factors: The symptoms are alleviated by nothing, the symptoms are aggravated by nothing. Associated signs and symptoms: Pertinent positives: decreased appetite, SOB on exertion. Severity of symptoms: At their worst the symptoms were moderate in the emergency department the symptoms are unchanged. Patient's baseline: Neuro: alert and fully oriented, Motor: no deficits, Ambulation: walks without assistance, Speech: normal. The patient has not experienced similar symptoms in the past. The patient has not recently seen a physician. Pt reports he has been weak and not eating well for about a month. States he has no appetite and just drinks boost. Reports a cough that is now resolved. Today his neighbor mentioned that he may need to come get checked out at the ER so he agreed to come. . Historical: - Allergies: 11:00 No Known Allergies; aa5 - PMHx: 11:00 Hypertension; Hypothyroidism; Skin Cancer; aa5 - PSHx: 11:00 Appendectomy; surgery to face for removal of lymph nodes; Skin Cancer removed; aa5 - Immunization history:: Adult Immunizations up to date. - Ebola Screening: : No symptoms or risks identified at this time. - Social history:: Smoking status: Patient/guardian denies using tobacco. ROS: 14:31 ENT: Negative for injury, pain, and discharge, Neck: Negative for injury, pain, and kb swelling, Cardiovascular: Negative for chest pain, palpitations, and edema, Respiratory: Negative for shortness of breath, cough, wheezing, and pleuritic chest pain, Abdomen/GI: Negative for abdominal pain, nausea, vomiting, diarrhea, and constipation, Back: Negative for injury and pain, : Negative for injury, bleeding, discharge, and swelling, MS/Extremity: Negative for injury and deformity, Skin: Negative for injury, rash, and discoloration. 14:31 Constitutional: Positive for malaise, poor PO intake, weight loss. 14:31 Neuro: Positive for weakness. Exam: 14:31 Head/Face: Normocephalic, atraumatic. ENT: Nares patent. No nasal discharge, no kb septal abnormalities noted. Tympanic membranes are normal and external auditory canals are clear. Oropharynx with no redness, swelling, or masses, exudates, or evidence of obstruction, uvula midline. Mucous membranes moist. Neck: Trachea midline, no thyromegaly or masses palpated, and no cervical lymphadenopathy. Supple, full range of motion without nuchal rigidity, or vertebral point tenderness. No Meningismus. Chest/axilla: Normal chest wall appearance and motion. Nontender with no deformity. No lesions are appreciated. Cardiovascular: Regular rate and rhythm with a normal S1 and S2. No gallops, murmurs, or rubs. Normal PMI, no JVD. No pulse deficits. Respiratory: Lungs have equal breath sounds bilaterally, clear to auscultation and percussion. No rales, rhonchi or wheezes noted. No increased work of breathing, no retractions or nasal flaring. Abdomen/GI: Soft, non-tender, with normal bowel sounds. No distension or tympany. No guarding or rebound. No evidence of tenderness throughout. Skin: Warm, dry with normal turgor. Normal color with no rashes, no lesions, and no evidence of cellulitis. MS/ Extremity: Pulses equal, no cyanosis. Neurovascular intact. Full, normal range of motion. Neuro: Awake and alert, GCS 15, oriented to person, place, time, and situation. Cranial nerves II-XII grossly intact. Motor strength 5/5 in all extremities. Sensory grossly intact. Cerebellar exam normal. Normal gait. 14:31 Constitutional: The patient appears alert, awake, emaciated. Vital Signs: 11:01 BP 122 / 49; Pulse 76; Resp 16 S; Temp 98.3(TE); Pulse Ox 97% on R/A; Pain 0/10; aa5 11:30 BP 125 / 52; Pulse 72; Resp 23; Pulse Ox 100% ; sv 12:00 BP 128 / 45; Pulse 71; Resp 26; Pulse Ox 100% ; sv 13:00 BP 126 / 42; Pulse 74; Resp 20; Pulse Ox 100% ; sv 14:00 BP 124 / 45; Pulse 79; Resp 19; Pulse Ox 99% ; sv 14:30 BP 118 / 41; Pulse 78; Resp 20; Pulse Ox 100% on R/A; sv 15:30 BP 116 / 40; Pulse 74; Resp 18; Pulse Ox 100% ; sv 16:30 BP 111 / 35; Pulse 70; Resp 24; Pulse Ox 99% ; sv 17:00 BP 116 / 42; Pulse 69; Resp 24; Temp 98; Pulse Ox 100% ; sv MDM: 11:28 Patient medically screened. kb 13:16 Data reviewed: vital signs, nurses notes. Data interpreted: Pulse oximetry: on room air kb is 100 %. Interpretation: normal. Counseling: I had a detailed discussion with the patient and/or guardian regarding: the historical points, exam findings, and any diagnostic results supporting the discharge/admit diagnosis, lab results, radiology results, the need for further work-up and treatment in the hospital. Physician consultation: Marlon Chadwick was contacted at 13:17, regarding admission, to the telemetry unit. patient's condition, and will see patient in ED, shortly. 04/21 11:36 Order name: Basic Metabolic Panel; Complete Time: 12:30 kb 04/21 11:36 Order name: CBC with Diff; Complete Time: 13:16 kb 04/21 11:36 Order name: LFT's; Complete Time: 12:30 kb 04/21 11:36 Order name: Magnesium; Complete Time: 12:30 kb 04/21 11:36 Order name: NT PRO-BNP; Complete Time: 12:30 kb 04/21 11:36 Order name: PT-INR; Complete Time: 12:07 kb 04/21 11:36 Order name: Troponin (emerg Dept Use Only); Complete Time: 12:30 kb 04/21 11:36 Order name: XRAY Chest (1 view); Complete Time: 12:27 kb 04/21 12:07 Order name: Manual Differential; Complete Time: 13:16 EDMS 04/21 12:50 Order name: Blood Culture Adult (2) kb 04/21 12:50 Order name: Procalcitonin; Complete Time: 14:28 kb 04/21 12:50 Order name: Lactate; Complete Time: 14:07 kb 04/21 11:36 Order name: EKG; Complete Time: 11:37 kb 04/21 11:36 Order name: Cardiac monitoring; Complete Time: 11:46 kb 04/21 11:36 Order name: EKG - Nurse/Tech; Complete Time: 12:10 kb 04/21 11:36 Order name: IV Saline Lock; Complete Time: 11:51 kb 04/21 11:36 Order name: Labs collected and sent; Complete Time: 11:51 kb 04/21 11:36 Order name: O2 Per Protocol; Complete Time: 11:46 kb 04/21 11:36 Order name: O2 Sat Monitoring; Complete Time: 11:46 kb Administered Medications: 13:30 Drug: Albuterol 2.5 mg Route: Inhalation; sv 13:30 Drug: Albuterol 2.5 mg Route: Inhalation; sv 13:30 Drug: Albuterol 2.5 mg Route: Inhalation; sv 13:30 Drug: NS 0.9% 500 ml Route: IV; Rate: bolus; Site: right forearm; sv 13:30 Drug: Zithromax 500 mg Route: IVPB; Infused Over: 1 hrs; Site: right forearm; sv 14:45 Follow up: Response: No adverse reaction; IV Status: Completed infusion; IV Intake: sv 250ml 13:30 Drug: Rocephin 1 grams Route: IV; Rate: calculated rate; Site: right forearm; sv 13:32 Follow up: Response: No adverse reaction; IV Status: Completed infusion; IV Intake: 10mlsv 13:32 Drug: D50W 50 ml Route: IVP; Site: right forearm; sv 14:03 Follow up: Response: No adverse reaction sv 13:34 Drug: Sodium Bicarbonate 1 amp Route: IVP; Site: right forearm; sv 14:03 Follow up: Response: No adverse reaction sv 13:35 Drug: Insulin Regular Human 10 units {Co-Signature: [email or web address] (Evita Coronado RN).} Route: IVP; sv Site: right forearm; 14:03 Follow up: Response: No adverse reaction sv 14:29 Drug: Kayexalate 30 grams Route: PO; sv 15:48 Follow up: Response: No adverse reaction sv Disposition: 04/22 08:01 Co-signature as Attending Physician, Tomás Bernal MD I agree with the assessment and kdr plan of care. Disposition: 04/21/19 13:17 Hospitalization ordered by Marlon Chadwick for Inpatient Admission. Preliminary diagnosis are Pneumonia, unspecified organism, Elevated white blood cell count, Hyperkalemia, Weakness. - Bed requested for Telemetry/MedSurg (Inpatient). - Status is Inpatient Admission. sv - Condition is Stable. - Problem is new. - Symptoms are unchanged. UTI on Admission? No Signatures: Dispatcher [employer] EDMS Kathy Kapadia, STEPHANY-C LOOM OVERHAULER-Coni Del Toro, RN RN sv Bethany Lopez RN RN dw Tomás Bernal MD MD kdr Jeni Low, RN RN iw Sugey Gilbert, RN RN aa5 Evita Coronado RN [id number] Corrections: (The following items were deleted from the chart) 04/21 16:33 13:17 Hospitalization Ordered by Marlon Chadwick for Inpatient Admission. Preliminary dw diagnosis is Pneumonia, unspecified organism; Elevated white blood cell count; Hyperkalemia; Weakness. Bed requested for Telemetry/MedSurg (Inpatient). Status is Inpatient Admission. Condition is Stable. Problem is new. Symptoms are unchanged. UTI on Admission? No. kb 17:14 16:33 04/21/2019 13:17 Hospitalization Ordered by Marlon Chadwick for Inpatient sv Admission. Preliminary diagnosis is Pneumonia, unspecified organism; Elevated white blood cell count; Hyperkalemia; Weakness. Bed requested for Telemetry/MedSurg (Inpatient). Status is Inpatient Admission. Condition is Stable. Problem is new. Symptoms are unchanged. UTI on Admission? No. dw
[2019-04-21] MEDS ORDERED: AZITHROMYCIN IV 500 MG in NA CHLORIDE 0.9% 250 ML IVPB ONE (13:45)
[2019-04-21] MEDS ORDERED: ONDANSETRON 4 MG/2 ML VIAL IV PRN (16:56)
[2019-04-21] MEDS ORDERED: ALBUTEROL 2.5 MG/3 ML NEB SOL NEB PRN (16:56)
[2019-04-21] MEDS ORDERED: ACETAMINOPHEN 500 MG TAB PO PRN (16:56)
--- NOTE | 2019-04-21 17:28 | P.HP ---
Certification for Inpatient Patient admitted to: Inpatient With expected LOS: >2 Midnights Practitioner: I am a practitioner with admitting privileges, knowledge of patient current condition, hospital course, and medical plan of care. 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 Patient is followed at [facility] for cancer treatment. 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 Patient denied any fever or chills or cough. In emergency department, patient noted to be afebrile, WBC noted to be 60,000, platelet count of 1391. BMP demonstrated hyperkalemia and elevated creatinine indicating acute renal failure. Chest x-ray demonstrates left lower lobe opacity which could be pneumonia. Of note patient has metastasis to the lungs and previous CT chest demonstrated lung nodules with scarring in the left apex and disease in the left lung base. He does not meet criteria for sepsis. Patient is admitted for further management. Allergies No Known Allergies Allergy (Unverified 12/30/17 21:46) Home Medications: Levothyroxine [Synthroid*] 1 tab PO DAILY 12/30/17 Aspirin [Aspirin EC 81 MG] 1 tab PO DAILY #90 tablet. 12/31/17 - Past Medical/Surgical History Diabetic: No -: HTN -: hypothyroidism -: multiple skin cancer -: hep C - Family History Family History: Reviewed- Non-Contributory - Social History Alcohol use: No CD- Drugs: No Review of Systems Other: General: No fever, no malaise, patient reports significant weight loss over the past 2 months. Eyes: No eye discharge, Respiratory: No cough, no shortness of breath. CVS: No chest pain, no palpitation, no lightheadedness. GI: No abdominal pain, no nausea no vomit, no constipation, no diarrhea. Genitourinary: No dysuria, no urinary frequency, no incontinence, no hematuria. Musculoskeletal: No joint pains, or joint swelling. Neurology: No headache, no asymmetric, weakness, no problem with swallowing. Except as documented, all other systems reviewed and negative. Physical Examination - Physical Exam General: Alert, In no apparent distress, Oriented x3, Cachectic HEENT: Normocephalic, PERRLA, Mucous membr. moist/pink Neck: Supple, JVD not distended, No Thyromegaly Respiratory: Clear to auscultation bilaterally, Normal air movement Cardiovascular: No edema, Regular rate/rhythm, Normal S1 S2, No murmurs Capillary refill: <2 Seconds Gastrointestinal: Normal bowel sounds, Soft and benign, Non-distended, No tenderness Musculoskeletal: No swelling, No erythema Integumentary: No rashes Neurological: Normal speech, Normal strength at 5/5 x4 extr, Cranial nerves 3- 12 intact Lymphatics: No axilla or inguinal lymphadenopathy - Studies Laboratory Data (last 24 hrs) 04/21/19 11:50: PT 14.6 H, INR 1.25 04/21/19 11:50: WBC 60.1 H*, Hgb 9.2 L, Hct 27.4 L, Plt Count 1391 H* 04/21/19 11:50: Sodium 139, Potassium 6.3 H*, BUN 45 H, Creatinine 1.94 H, Glucose 106, Magnesium 2.5 H, Total Bilirubin 0.3, AST 28, ALT 34, Alkaline Phosphatase 150 H Assessment and Plan - Problems (Diagnosis) (1) Myeloproliferative disorder Current Visit: Yes Status: Acute (2) Pneumonia Current Visit: Yes Status: Acute (3) History of skin cancer Current Visit: Yes Status: Acute (4) Hyperkalemia Current Visit: Yes Status: Acute (5) Acute renal failure Current Visit: Yes Status: Acute (6) Anemia Current Visit: Yes Status: Acute - Plan Admit to inpatient Hydrate with IV normal saline Monitor renal function for improvement Patient received hyperkalemia treatment in the ED. Repeat potassium level within 6 hrs and repeat hyperkalemia treatment as needed. Start IV Rocephin and Zithromax for pneumonia Check sputum for Gram stain and culture Monitor CBC and BMP Regular diet as tolerated. Nutritional supplementation Consult to dietitian requested. Hematology oncology consulted to assist with management of myeloproliferative disorder. PT and OT. - Advance Directives Does patient have a Living Will: Yes Does patient have a Durable POA for Healthcare: Yes
[2019-04-21 17:53] VITALS: BMI 17.4
[2019-04-21] MEDS: NA CHLORIDE 0.9% 1,000 ML IV SCH (18:05)
[2019-04-21] MEDS: ENOXAPARIN 40 MG/0.4 ML SQ SCH (18:11)
[2019-04-21] MEDS ORDERED: CEFTRIAXONE 1 GM/NS 50 ML 1 GM/50 ML BAG IV SCH (21:00)
[2019-04-21] MEDS: CEFTRIAXONE/SWI 1gm 1 GM/10 ML SYR IVP SCH (21:00)
[2019-04-21 21:20] LABS: Urine Appearance CLEAR; Urine Bilirubin NEGATIVE (NEG); Urine Blood NEGATIVE (NEG); Urine Color YELLOW; Urine Glucose NEGATIVE (NEG); Urine Protein TRACE (NEG); Urine Specific Gravity 1.015 (1.005-1.030); Urine Urobilinogen 0.2 mg/dL (0.2-1.0)
[2019-04-21 21:23] LABS: Urine Microscopic Reflex ORDER UMIC
[2019-04-21 21:33] LABS: Urine Bacteria <20 /HPF (NONE SEEN); Urine Culture Reflex Order REFLEXED; Urine Mucus 1+ /HPF (NONE SEEN); Urine RBC <5 /HPF (NONE SEEN)
[2019-04-22] MEDS: NA CHLORIDE 0.9% 1,000 ML IV SCH ×4 (03:55→22:10)
[2019-04-22 04:33] LABS: Absolute Lymphocytes (CBC) 1.3 K/uL (0.7-4.9); Basophils % 0.4 % (0-1.3); Hematocrit 22.9 % (39.6-49.0); Lymphocytes % 2.6 % (15.3-44.8); MPV 8.5 fL (7.6-11.3); RBC Red Blood Cell Count 3.01 M/uL (4.33-5.43)
[2019-04-22 05:44] LABS: Magnesium 2.3 mg/dL (1.8-2.4); Phosphorus 4.3 mg/dL (2.5-4.9)
[2019-04-22 05:45] LABS: Potassium 5.7 mmol/L (3.5-5.1); Thyroid Stimulating Hormone 35.3 uIU/mL (0.360-3.740)
[2019-04-22] MEDS ORDERED: LEVOTHYROXINE SOD 0.088 MG TAB PO SCH (06:00)
[2019-04-22] MEDS ORDERED: CALCIUM GLUC 10% INJ 4.65 MEQ in NA CHLORIDE 0.9% 100 ML IV ONE (06:03)
[2019-04-22] MEDS ORDERED: LEVOTHYROXINE SOD 0.1 MG TAB ONE (06:40)
[2019-04-22] MEDS ORDERED: SODIUM BICARB 50 MEQ/50ML VIAL IV ONE ×2 (07:15→12:31)
[2019-04-22] MEDS: CEFTRIAXONE/SWI 1gm 1 GM/10 ML SYR IVP SCH ×2 (08:05→22:11)
[2019-04-22] MEDS: ENOXAPARIN 40 MG/0.4 ML SQ SCH (08:05)
[2019-04-22 08:14] LABS: Absolute Lymphocytes (CBC) 1.6 K/uL (0.7-4.9); Basophils % 0.6 % (0-1.3); Hematocrit 23.1 % (39.6-49.0); Lymphocytes % 3.1 % (15.3-44.8); MPV 8.3 fL (7.6-11.3); RBC Red Blood Cell Count 3.05 M/uL (4.33-5.43)
[2019-04-22] MEDS: AZITHROMYCIN IV 500 MG in NA CHLORIDE 0.9% 250 ML IVPB SCH (09:46)
[2019-04-22 11:46] LABS: Magnesium 2.4 mg/dL (1.8-2.4); Phosphorus 4.3 mg/dL (2.5-4.9); Uric Acid 11.6 mg/dL (3.5-7.2)
[2019-04-22 11:50] LABS: Potassium 6.1 mmol/L (3.5-5.1)
[2019-04-22] MEDS ORDERED: SOD POLYSTYREN SUL 15 GM/60 ML UCUP PO ONE ×2 (12:16→22:25)
--- NOTE | 2019-04-22 12:23 | P.PN ---
Subjective Date of Service: 04/22/19 Chief Complaint: Generalized weakness Patient has poor oral intake. Has not eaten much since admission. He has been afebrile. He states his stool today looks black. He denies any abdominal pain. He has been a fever. He denies any cough or shortness of breath. Physical Examination - Vital Signs Temperature: 98.1 F Blood Pressure: 118/59 Pulse: 61 Respirations: 16 Pulse Ox (%): 98 - Physical Exam General: Alert, In no apparent distress, Oriented x3, Cachectic HEENT: Mucous membr. moist/pink Neck: Supple, JVD not distended Respiratory: Clear to auscultation bilaterally, Normal air movement Cardiovascular: No edema, Normal pulses, Regular rate/rhythm, Normal S1 S2 Capillary refill: <2 Seconds Gastrointestinal: Normal bowel sounds, Soft and benign, Non-distended, No tenderness Musculoskeletal: No swelling, No erythema Integumentary: No breakdown Neurological: Normal speech, Normal strength at 5/5 x4 extr - Studies Laboratory Data (last 24 hrs) 04/21/19 11:50: Sodium 139, Potassium 6.3 H*, BUN 45 H, Creatinine 1.94 H, Glucose 106, Magnesium 2.5 H, Total Bilirubin 0.3, AST 28, ALT 34, Alkaline Phosphatase 150 H Assessment And Plan - Current Problems (Diagnosis) (1) Myeloproliferative disorder Current Visit: Yes Status: Acute (2) Pneumonia Current Visit: Yes Status: Acute (3) History of skin cancer Current Visit: Yes Status: Acute (4) Hyperkalemia Current Visit: Yes Status: Acute (5) Acute renal failure Current Visit: Yes Status: Acute (6) Anemia Current Visit: Yes Status: Acute - Plan Continue Hydrate with IV normal saline Nephrology consult. Continue to treat hyperkalemia with Kayexalate, sodium bicarb, albuterol, calcium gluconate Repeat potassium level within 6 hrs and repeat hyperkalemia treatment as needed. Continue IV antibiotics for pneumonia Monitor CBC and BMP Regular diet as tolerated. Nutritional supplementation Consult to dietitian requested. Hematology oncology consulted to assist with management of myeloproliferative disorder. PT and OT. Check stool for occult blood Monitor hemoglobin and transfuse p.r.n. for hemoglobin less than 7.
[2019-04-22] MEDS ORDERED: ALBUTEROL 2.5 MG/3 ML NEB SOL NEB ONE ×2 (12:31→22:26)
[2019-04-22 13:46] LABS: Anisocytosis 1+; Blood Morphology Comment NOTED (NOT SEEN); Platelet Estimate INCR; Platelets, Giant OCC
[2019-04-22 13:47] LABS: Burr Cells 1+; Elliptocytes 1+; Hypochromasia 1+; Poikilocytosis 2+
[2019-04-22] MEDS ORDERED: GLUCAGON 1 MG/VIAL IM PRN (20:33)
[2019-04-22] MEDS ORDERED: D50W 25 GM/50 ML SYRINGE/VIAL IV PRN (20:33)
[2019-04-22] MEDS ORDERED: D50W 25 GM/50 ML SYRINGE/VIAL IV ONE (20:33)
[2019-04-22] MEDS ORDERED: INSULIN -REGULAR HUMAN 50 UNIT/0.5 ML ML IV ONE (20:33)
[2019-04-23] MEDS: NA CHLORIDE 0.9% 1,000 ML IV SCH ×4 (01:00→21:30)
--- NOTE | 2019-04-23 02:55 | CON ---
Date of Consultation: 04/22/2019 Chief Complaint: Acute kidney injury and hyperkalemia. History Of Present Illness: Patient is an 88-year-old man with history of squamous cell carcinoma of the skin with metastatic disease to the lungs, status post radiation and chemotherapy. He had a lymph node resection. He presented to the hospital because of generalized weakness. He was complaining of weakness. He has had poor p.o. intake and significant weight loss. Patient has been followed by [facility] in [place] for cancer treatment. He was recently diagnosed with myelofibrosis and had bone marrow biopsy done by his geotechnical engineer. Platelet count up to 687. White count 23,000. Patient was found to have hyperkalemia today and received Kayexalate. Renal function was abnormal when test was obtained. Patient has a history of chronic kidney disease stage 3. Patient had developed hyperkalemia, potassium of 5.7 and 6.1. Uric acid was elevated up to 11.6, calcium was 7.9, phosphorus 4.6, magnesium 2.4. Review of Systems: Constitutional: Complains of generalized weakness. Denies fever, chills. Eyes: Denies vision changes. Ears, Nose, Mouth and Throat: Denies sore throat or earache. Respiratory: Has some shortness of breath. Denies PND, orthopnea. Cardiovascular: Denies chest pain, palpitation. GI: Denies nausea or vomiting. : Denies dysuria or hematuria. All other systems reviewed and all are negative. Past Medical History: Hypertension, hypothyroidism, multiple skin cancer with metastatic disease, hepatitis C. Family History: Noncontributory. Social History: Denies tobacco, alcohol, or illicit drugs. Physical Examination: General: The patient is awake, alert, follows commands. Eyes: Anicteric sclerae. EOMI. Ears, Nose, Mouth and Throat: Oral mucosa moist. No pallor. Neck: Supple. No bruits. Lungs: Clear to auscultation bilaterally. Heart: S1, S2. RRR ABDOMEN: Soft, benign. NO rebound Extremities: Slight edema in both ankles. NO cyanosis. Skin: warm and dry , no oozing Neurologic: no tremor CN intact Blood Work: WBC 6,100, hemoglobin 9.2, platelet count is 1391. Sodium 139, potassium 6.3, BUN 45, creatinine 1.94. Magnesium 2.5. Impression And Plan: 1. Myeloproliferative disorder. Patient will need Hematology consultation. 2. Hyperkalemia. Abnormal renal function test. Patient likely has chronic kidney disease stage 3. Patient was treated with Kayexalate. Plan is to start Florinef for hyperkalemia. Patient has history of myeloproliferative disorder and polycythemia, which may be contributory to renal dysfunction with hyperkalemia. 3. Continue IV hydration with normal saline. Monitor renal function. Patient received treatment in the emergency room for hyperkalemia. 4. Likely, patient has pneumonia. Continue Rocephin and Zosyn. 5. Nutritional supplement as needed. Patient will be screened for monoclonal gammopathy of unknown significance. BEAU/MODJaneth Voice ID: [id number] Report ID: [id number] MESFIN
[2019-04-23 04:36] LABS: Magnesium 2.1 mg/dL (1.8-2.4); Potassium 4.6 mmol/L (3.5-5.1)
--- NOTE | 2019-04-23 06:29 | P.CNS ---
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 In emergency department, patient noted to be afebrile, WBC noted to be ~ 60K, platelet count of 1391K. BMP demonstrated hyperkalemia with acute on chronic renal failure. Chest x-ray demonstrates left lower lobe opacity which could be pneumonia. Pt seen on 04/22/19 at 1.30 pm Allergies No Known Allergies Allergy Home Medications: Levothyroxine [Synthroid*] 1 tab PO DAILY 12/30/17 Aspirin [Aspirin EC 81 MG] 1 tab PO DAILY #90 tablet. 12/31/17 - Past Medical/Surgical History (as per chart review)- limited history from patient -: HTN -: hypothyroidism -: multiple skin cancer -: hep C - Family History Family History: Reviewed - Social History Alcohol use: No Smoking /Drugs: No Review of Systems Other: General: No fever, + malaise, ++ wt loss Eyes: No eye discharge, Respiratory: No cough, no shortness of breath. CVS: No chest pain, no palpitation, no lightheadedness. GI: No abdominal pain, no nausea no vomit, no constipation, no diarrhea. Genitourinary: No dysuria, no urinary frequency, no incontinence, no hematuria. Musculoskeletal: No joint pains, or joint swelling. Neurology: No headache, no asymmetric, weakness, no problem with swallowing. Except as documented, all other systems reviewed and negative. Physical Examination - Physical Exam General: emaciated elderly gentleman lying in bed, Alert, awake and verbal, appears comfortable HEENT: Normocephalic, PERRLA, Mucous membr. moist/pink Neck: Supple, JVD not distended, No Thyromegaly Respiratory: poor resp effort, good air entry; some what decreased BS base Cardiovascular: No edema, Regular rate/rhythm, Normal S1 S2, No murmurs Gastrointestinal: Normal bowel sounds, Soft and benign, Non-distended, No tenderness Musculoskeletal: No swelling, No erythema Integumentary: dry skin/ few ecchymoses, frail skin Neurological: moving all extremities Lymphatics: No axilla, cervical, SC lymphadenopathy - Studies Laboratory Data (last 24 hrs) 04/21/19 11:50: PT 14.6 H, INR 1.25 04/21/19 11:50: WBC 60.1 H*, Hgb 9.2 L, Hct 27.4 L, Plt Count 1391 H* 04/21/19 11:50: Sodium 139, Potassium 6.3 H*, BUN 45 H, Creatinine 1.94 H, Glucose 106, Magnesium 2.5 H, Total Bilirubin 0.3, AST 28, ALT 34, [id number] H PROBLEMS/ Recomemndations: 1. Primary Myelofibrosis: Seems to have been diagnosed with PMF sometime early this year by Dr Maribel Baker. As he was getting treatment for metastatic skin cancer , he was monitored and has not been on any treatment for PMF so far. Most recent labs in [facility] 2-3 months ago with normal range Hb 12-13gm, WBC ~30K and plt count 600-700K. There is definitely a significant increase in leucocytosis and thrombocytosis at this time, though an element of severe dehydration, underlying infection contributing to some degree of uptrend as well. Mild decrease in the WBC and platelet count since admission. Also WBC needs to be corrected in this setting of PMF. - Given his frail status and other medical issues with ARF, possible infection, will not recommend intervene with treatment for PMF at this time. Once he recuperates, he can follow up as outpatient with his Oncologist to discuss options (likely with Ranjan) as indicated. > will not use hydrea due to drop in Hb, ? GI Bleed and possible reactive etiology at this time. Monitor cbc daily > Follow up peripheral smear review. > Need records from [facility] 2. Anemia: Drop in atleast 4 gm of HB in 2-3 months.Though anemia is expected in PMF, this appears to be microcytic likely from iron deficiency. Rule out GI losses. Monitor Hb and transfuse to keep Hb > 8gm. Check iron panel, ferritin. 4. Dehydration/Acute renal failure with electrolyte abnormalities- hyperkalemia , hyperuricemia: Most recent creatine 3 months ago 1.3. Improving with hydration. Prior episodes of hyperkalemia in the recent past as well in [facility]. Hyperkalemia and hyperuricemia likely due to the increased cell turn over. May start renal dose adjusted Allopurinol 100mg daily. c/w IVF with caution to avoid fluid overload. >Follow up Nephrology. 4. Metastatic Squamous cell carcinoma: Prior chemo radiation followed by immunotherapy (Libtayo) when metastatic to lungs. Also received radiation to the lung lesions as well. He is currently under surveillance at [facility]. 5. Failure to thrive: Cachexia with declining performance status for the past 2 months with poor oral intake. Likely from the underlying disease/ advanced age. C/w supportive management. I also discussed goals of care and advanced care directives with pt, and his daughter. Daughter understands that he has declined significantly but leaves the decision about the advanced care directives to patient who has not decided as of now. Poor prognosis Plan and recommendations discussed with Dr Chadwick. Please do not hesitate to contact me should you have any questions. Late note entry due to [employer] windows server [employer] log in issues.
[2019-04-23] MEDS: LEVOTHYROXINE SOD 0.1 MG TAB PO SCH (07:32)
[2019-04-23 08:57] LABS: Absolute Lymphocytes (CBC) 1.3 K/uL (0.7-4.9); Basophils % 0.3 % (0-1.3); Hematocrit 23.3 % (39.6-49.0); Lymphocytes % 3.4 % (15.3-44.8); MPV 8.4 fL (7.6-11.3); RBC Red Blood Cell Count 3.09 M/uL (4.33-5.43)
[2019-04-23] MEDS: AZITHROMYCIN IV 500 MG in NA CHLORIDE 0.9% 250 ML IVPB SCH (09:07)
[2019-04-23] MEDS: CEFTRIAXONE/SWI 1gm 1 GM/10 ML SYR IVP SCH ×2 (09:07→21:30)
[2019-04-23] MEDS: ALLOPURINOL 300 MG TAB PO SCH (09:07)
[2019-04-23] MEDS: FLUDROCORTISONE 0.1 MG TAB PO SCH (09:08)
--- NOTE | 2019-04-23 12:07 | P.PN ---
Subjective Date of Service: 04/23/19 Chief Complaint: Generalized weakness Subjective: No new changes Pt with myloproliferative disease , HX of skin cancer , admitted for ekanes , found to have hyperkalemia Today Cr down to baseline K wnl Plt and WBC improving poor prognosis Physical Examination - Vital Signs Temperature: 97.9 F Blood Pressure: 160/70 Pulse: 64 Respirations: 16 Pulse Ox (%): 97 - Physical Exam General: Alert, In no apparent distress, Cachectic HEENT: Atraumatic Neck: Supple, Without JVD or thyroid abnormality Respiratory: Clear to auscultation bilaterally, Normal air movement Cardiovascular: No edema, Regular rate/rhythm, Normal S1 S2, No gallops, No rubs , No murmurs Gastrointestinal: Normal bowel sounds, Soft and benign Musculoskeletal: No swelling Assessment And Plan - Plan Kira on CKD III Cr down to baseline will reduce IVF rate renal dose meds Hyperkalmeia could be multifactorial pseudohyperkalemia due to thrombocytosis +/- CKD +/- hypothyrodism K now wnl need to send lab to labrotaory as soon as specimen collected low K diet cont IVF PNA cont Abx Thrombocytosis and myloperoliferative disease oncology on jodi poor prognosis
--- NOTE | 2019-04-23 12:14 | RAD REPORT ---
EXAM DESCRIPTION: US - Renal Ultrasound-Complete - 04/23/2019 12:03 pm CLINICAL HISTORY: Chronic kidney disease COMPARISON: Ultrasound December 2017 FINDINGS: The right kidney measures 10.3 x 4.9 x 4.5 cm. The left kidney measures 9.2 x 4.1 x 4.6 c m. Renal cortical thickness and echogenicity are normal. No hydronephrosis of either kidney. No solid mass lesion identifiable. Bilateral renal cysts are present. Largest on the left is 2.3 cm. Bladder only partially filled. There is an irregular, heterogeneous and lobulated prostate at the tena dder base prostate gland is difficult to fully evaluate on transabdominal sonography. Correlation is made with PSA values. IMPRESSION: No hydronephrosis or solid mass of either kidney. Bilateral renal cysts are present. Enlarged lobulated and heterogeneous prostate gland. Correlation is needed with PSA values.
--- NOTE | 2019-04-23 13:35 | P.PN ---
Subjective Date of Service: 04/23/19 Chief Complaint: Generalized weakness Patient still not eating much. He has been afebrile. He denies any abdominal pain. He denies any cough or shortness of breath. Physical Examination - Vital Signs Temperature: 97.9 F Blood Pressure: 160/70 Pulse: 64 Respirations: 16 Pulse Ox (%): 97 - Physical Exam General: Alert, In no apparent distress, Oriented x3 HEENT: Mucous membr. moist/pink Neck: Supple, JVD not distended Respiratory: Clear to auscultation bilaterally, Normal air movement Cardiovascular: No edema, Regular rate/rhythm, Normal S1 S2, No murmurs Gastrointestinal: Normal bowel sounds, Soft and benign, Non-distended, No tenderness Musculoskeletal: No swelling, No erythema Integumentary: No rashes Neurological: Normal speech Assessment And Plan - Current Problems (Diagnosis) (1) Myeloproliferative disorder Current Visit: Yes Status: Acute (2) Pneumonia Current Visit: Yes Status: Acute (3) History of skin cancer Current Visit: Yes Status: Acute (4) Hyperkalemia Current Visit: Yes Status: Acute (5) Acute renal failure Current Visit: Yes Status: Acute (6) Anemia Current Visit: Yes Status: Acute - Plan WBC count and platelet count are trending down with IV hydration. Hyperkalemia has resolve. Stool for occult blood is negative. 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 Continue Hydrate with IV normal saline. Reduced IV fluid rate. Nephrology input appreciated. Hyperkalemia thought to be secondary to bone Land proliferation Continue to treat hyperkalemia with Kayexalate, sodium bicarb, albuterol, calcium gluconate as needed Continue IV antibiotics for pneumonia Monitor CBC and BMP Regular diet as tolerated. Nutritional supplementation Consult to dietitian requested. Hematology oncology input appreciated. Outpatient treatment for the myeloproliferative disorder recommended. Discussed goals of care with patient. He would like to consider treatment for the bone marrow disorder and declined hospice at this time. Continue PT and OT.
[2019-04-24] MEDS: LEVOTHYROXINE SOD 0.1 MG TAB PO SCH (05:42)
[2019-04-24] MEDS: CEFTRIAXONE/SWI 1gm 1 GM/10 ML SYR IVP SCH ×2 (08:52→20:38)
[2019-04-24] MEDS: ALLOPURINOL 300 MG TAB PO SCH (08:52)
[2019-04-24] MEDS: AZITHROMYCIN IV 500 MG in NA CHLORIDE 0.9% 250 ML IVPB SCH (08:52)
[2019-04-24] MEDS: FLUDROCORTISONE 0.1 MG TAB PO SCH (08:53)
--- NOTE | 2019-04-24 12:32 | P.PN ---
Subjective Date of Service: 04/24/19 Chief Complaint: Generalized weakness No major changes from yesterday. Patient still not eating much and sleeping most of the time. He has been afebrile. Physical Examination - Vital Signs Temperature: 99.5 F Blood Pressure: 134/43 Pulse: 64 Respirations: 20 Pulse Ox (%): 99 - Physical Exam General: Alert, In no apparent distress, Oriented x3 HEENT: Mucous membr. moist/pink Neck: Supple, JVD not distended Respiratory: Clear to auscultation bilaterally, Normal air movement Cardiovascular: No edema, Normal pulses, Regular rate/rhythm, Normal S1 S2 Gastrointestinal: Normal bowel sounds, Soft and benign, Non-distended, No tenderness Musculoskeletal: No swelling Integumentary: No rashes Neurological: Normal speech, Normal strength at 5/5 x4 extr Assessment And Plan - Current Problems (Diagnosis) (1) Myeloproliferative disorder Current Visit: Yes Status: Acute (2) Pneumonia Current Visit: Yes Status: Acute (3) History of skin cancer Current Visit: Yes Status: Acute (4) Hyperkalemia Current Visit: Yes Status: Acute (5) Acute renal failure Current Visit: Yes Status: Acute (6) Anemia Current Visit: Yes Status: Acute - Plan WBC count and platelet count are trending down with IV hydration. Hyperkalemia has resolved. Stool for occult blood is negative. 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 Continue to hydrate with IV normal saline. Nephrology input appreciated. Hyperkalemia thought to be secondary to bone marrow proliferation Continue to treat hyperkalemia with Kayexalate, sodium bicarb, albuterol, calcium gluconate as needed Continue IV antibiotics for pneumonia Monitor CBC and BMP Regular diet as tolerated. Nutritional supplementation Consult to dietitian requested. Hematology oncology input appreciated. Outpatient treatment for the myeloproliferative disorder recommended. Discussed goals of care with patient. He would like to consider treatment for the bone marrow disorder and declined hospice at this time. Continue PT and OT.
[2019-04-24] MEDS: NA CHLORIDE 0.9% 1,000 ML IV SCH (13:40)
--- NOTE | 2019-04-24 22:16 | PN ---
Date of Progress Note: 04/24/2019 Chief Complaint: Chronic kidney disease, hyperkalemia. History Of Present Illness: Patient was treated for hyperkalemia, received IV fluids for volume depl etion. Patient has history of myeloproliferative disease, history of skin cancer. He was found to h ave hyperkalemia upon admission and was treated with IV fluids. Received Kayexalate. Patient is on low potassium diet. Patient was found to have pneumonia and is receiving antibiotics. Review of Systems: Denies fever, chills. Physical Examination: Lungs: Clear to auscultation bilaterally. Heart: S1, S2. Abdomen: Soft, benign. Extremities: No edema. Laboratory Data: WBC 37.7 thousand, hemoglobin 7.9, platelet count is 813. Chemistry showed potassi um 4.0, sodium 144, chloride 114, CO2 of 23, BUN 18, creatinine 1.54, calcium 7.2. Impression And Plan: 1.Acute on chronic kidney injury, prerenal azotemia. BUN and creatinine ratio is improving. Creati nine level improved from 1.82 to 1.54. Potassium level improved from 6.3 to 4.0. Monitor renal func tion and electrolytes. Adjust treatment according. Continue low-potassium diet. 2.Hypertension. Avoid TUTU inhibitor in view of history of hyperkalemia. 3.Patient has multiple medical problems. Renal ultrasound was done during this admission and did no t show obstructive uropathy. There is no hydronephrosis. Bilateral cyst present in both kidneys. Largest is in the left kidney of 2.3 cm. EB/MODL Voice ID: [id number] Report ID: [id number]
[2019-04-25] MEDS: NA CHLORIDE 0.9% 1,000 ML IV SCH ×3 (02:49→21:41)
[2019-04-25] MEDS: LEVOTHYROXINE SOD 0.1 MG TAB PO SCH (06:13)
[2019-04-25 06:27] LABS: Absolute Lymphocytes (CBC) 1.2 K/uL (0.7-4.9); Basophils % 1.3 % (0-1.3); Hematocrit 22.2 % (39.6-49.0); Lymphocytes % 4.1 % (15.3-44.8); MPV 8.5 fL (7.6-11.3); RBC Red Blood Cell Count 2.96 M/uL (4.33-5.43)
[2019-04-25 06:33] LABS: Potassium 4.1 mmol/L (3.5-5.1)
[2019-04-25 07:03] LABS: Blood Morphology Comment NOTED (NOT SEEN); Platelet Estimate INCR; Toxic Granulation 1+
[2019-04-25 07:04] LABS: Anisocytosis 1+; Hypochromasia 1+
[2019-04-25] MEDS: CEFTRIAXONE/SWI 1gm 1 GM/10 ML SYR IVP SCH ×2 (09:00→20:06)
[2019-04-25] MEDS ORDERED: FLUDROCORTISONE 0.1 MG TAB PO SCH (09:00)
[2019-04-25] MEDS: AZITHROMYCIN IV 500 MG in NA CHLORIDE 0.9% 250 ML IVPB SCH (09:00)
[2019-04-25] MEDS: ALLOPURINOL 300 MG TAB PO SCH (09:01)
--- NOTE | 2019-04-25 12:38 | P.PN ---
Subjective Date of Service: 04/25/19 Chief Complaint: Generalized weakness No major changes from yesterday. The son reports patient is eating more today. He has been afebrile. He denies any nausea or vomiting or diarrhea. He has been laying in bed most of the time. Physical Examination - Vital Signs Temperature: 98.8 F Blood Pressure: 159/59 Pulse: 68 Respirations: 18 Pulse Ox (%): 97 - Physical Exam General: Alert, In no apparent distress, Oriented x3 HEENT: Mucous membr. moist/pink Neck: Supple, JVD not distended Respiratory: Clear to auscultation bilaterally, Normal air movement Cardiovascular: No edema, Regular rate/rhythm, Normal S1 S2, No murmurs Gastrointestinal: Normal bowel sounds, Soft and benign, Non-distended, No tenderness Musculoskeletal: No swelling Integumentary: No rashes Neurological: Normal speech, Normal strength at 5/5 x4 extr Assessment And Plan - Current Problems (Diagnosis) (1) Myeloproliferative disorder Current Visit: Yes Status: Acute (2) Pneumonia Current Visit: Yes Status: Acute (3) History of skin cancer Current Visit: Yes Status: Acute (4) Hyperkalemia Current Visit: Yes Status: Acute (5) Acute renal failure Current Visit: Yes Status: Acute (6) Anemia Current Visit: Yes Status: Acute - Plan WBC count and platelet count continue to trend down with IV hydration. Hyperkalemia has resolved. Stool for occult blood is negative. 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 Continue to hydrate with IV normal saline. Transfuse 1 unit PRBC for symptomatic anemia Nephrology input appreciated. Hyperkalemia thought to be secondary to bone marrow proliferation Continue to treat hyperkalemia with Kayexalate, sodium bicarb, albuterol, calcium gluconate as needed Continue IV antibiotics for pneumonia for 1 more day and then discontinue it Monitor CBC and BMP Regular diet as tolerated. Nutritional supplementation Hematology oncology input appreciated. Outpatient treatment for the myeloproliferative disorder recommended. Discussed goals of care with patient. He would like to consider treatment for the bone marrow disorder and declined hospice at this time. Plan of care discussed with the patient's son Continue PT and OT to assess current functional status.
[2019-04-25] MEDS ORDERED: NA CHLORIDE 0.9% 250 ML IV SCH (13:00)
[2019-04-25] MEDS ORDERED: FUROSEMIDE 20 MG/ 2ML VIAL IV SCH (16:00)
[2019-04-25 19:10] LABS: Hematocrit 29.1 % (39.6-49.0)
--- NOTE | 2019-04-25 21:30 | PN ---
Date of Progress Note: 04/25/2019 Chief Complaint: Chronic kidney disease, hyperkalemia, prerenal azotemia. History Of Present Illness: Patient was treated for hyperkalemia, received IV fluids for volume depl etion to control renal hypoperfusion and prevent hyperkalemia. Patient received Kayexalate and Sherry artur. Potassium level has stabilized, improved and currently normal. Florinef dose was reduced. Review of Systems: Denies fever, chills. Physical Examination: Lungs: Clear to auscultation bilaterally. Heart: S1, S2. Abdomen: Soft, benign. Extremities: Slight edema. Laboratory Data: Hemoglobin 9.6, WBC 29,000. Sodium 146, potassium 4.1, chloride 115, CO2 of 23, BU N 16, creatinine 1.42, calcium 7.3. Impression And Plan: 1.Hyperkalemia, resolved. Potassium level improved from 6.3 to 4.1. Patient does not have metaboli c acidosis. 2.Patient developed prerenal azotemia with IV fluids. BUN is trending down and improved from 40 to 16. Creatinine at baseline is 1.3 to 1.4 and improved from 1.86. Continue adequate hydration. Kiarra ent denies lower urinary tract symptoms. Renal ultrasound was done and did not show hydronephrosis. There is bilateral kidney cyst present. Prostate appears to be heterogeneous. In last, patient long l need to follow up with urologist. 3.Hypertension. Blood pressure controlled. 4.Myeloproliferative disorder. Patient will follow up with Oncology. BEAU/BHASKAR Voice ID: [id number] Report ID: [id number]
--- OUTSIDE RECORDS SUMMARY | 2019-04-26 00:54 | XMS REPORT ---
:1930 [facility] Address [address] [place] [address] [address] [place] [address] Care Team Providers Name Role Phone Unavailable Unavailable Unavailable Problems This patient has no known problems. Allergies, Adverse Reactions, Alerts This patient has no known allergies or adverse reactions. Medications This patient has no known medications.
--- OUTSIDE RECORDS SUMMARY | 2019-04-26 00:54 | XMS REPORT ---
:1930 Author Organization [employer] Care Team Providers Name Role Phone Delgado Patel Provider Role Unavailable Allergies, Adverse Reactions, Alerts Substance Reaction Event Type Polymyxin B Sulfate Info Not Available Drug Allergy Problems Problem Type Condition Code Onset Dates Condition Status Problem Hypothyroidism E03.9 Active Problem Hyperlipidemia E78.5 Active Problem Hypertension I10 Active Assessment Moderate protein-calorie malnutrition E44.0 Active Assessment Seasonal allergic rhinitis, J30.2 Active unspecified trigger Problem Seasonal allergic rhinitis, J30.2 Active unspecified trigger Problem Microcytic anemia D50.9 Active Problem Moderate protein-calorie malnutrition E44.0 Active Problem Chronic renal failure, stage 3 N18.3 Active (moderate) Problem Chronic hepatitis C B18.2 Active Problem Vitamin D deficiency E55.9 Active Problem Primary parotid gland malignancy C07 Active Medications Medication Code Code Instructions Start End Status Dosage System Date Date Claritin [facility] 23519356083 10 MG Orally Apr 05, May 05, Active 1 tablet Once a day for 2018 2018 allergies Amlodipine [facility] 14476558318 10-40 MG Oral Active TAKE 1 Besy-Benazepril CAPSULE BY HCl MOUTH EVERY DAY Ferrous [facility] 50447705044 324 (38 Fe) MG Jan 18, Active 1 tablet Gluconate Orally Once a 2018 day [facility] Vitamin D3 [facility] 75324450719 [address] UNIT Jan 18, Jul 17, Active as directed Orally Once a 2018 2019 day Levothyroxine [facility] 17122821007 112 MCG Orally Mar 04, Active 1 tablet on Sodium Once a day 2018 an empty stomach in the morning Aspirin Adult [facility] 99148983218 81 MG Orally Active 1 tablet Low Dose Once a day Results No Known Results Summary Purpose [employer] Submission
[2019-04-26] MEDS: NA CHLORIDE 0.9% 1,000 ML IV SCH ×2 (03:30→13:40)
[2019-04-26 04:56] LABS: Basophils % 0.4 % (0-1.3); Hematocrit 24.4 % (39.6-49.0); Lymphocytes % 3.5 % (15.3-44.8); MPV 8.5 fL (7.6-11.3); RBC Red Blood Cell Count 3.19 M/uL (4.33-5.43)
[2019-04-26 05:20] LABS: Potassium 3.7 mmol/L (3.5-5.1)
[2019-04-26] MEDS: POTASSIUM CL SA 10 MEQ TAB PO ONE ×2 (05:41→06:23)
[2019-04-26] MEDS: LEVOTHYROXINE SOD 0.1 MG TAB PO SCH (06:23)
[2019-04-26] MEDS: ALLOPURINOL 300 MG TAB PO SCH (08:32)
[2019-04-26] MEDS: CEFTRIAXONE/SWI 1gm 1 GM/10 ML SYR IVP SCH (08:32)
[2019-04-26] MEDS: AZITHROMYCIN IV 500 MG in NA CHLORIDE 0.9% 250 ML IVPB SCH (08:32)
[2019-04-26] MEDS ORDERED: TAMSULOSIN 0.4 MG SR CAP PO SCH (09:00)
[2019-04-26 11:37] VITALS: O2SAT 98
[2019-04-26 16:10] VITALS: BP 134/61; TEMP 99.3
[2019-04-26] MEDS ORDERED: ENSURE ENLIVE 237 ML CAN PO SCH (21:00)
--- NOTE | 2019-04-26 21:16 | CON ---
History Of Present Illness: An 88-year-old gentleman with complicated history of squamous cell carci noma of the skin with metastasis to the lungs, status post radiation and chemotherapy with a lymph no de dissection, presented with generalized weakness, anorexia, cough, and poor oral intake for 2 month s. The patient has been going to [facility]. He was also recently diag nosed with primary myelofibrosis of the bone with very elevated CBC and platelet count. He got on ul trasound performed showing right kidney 10 cm, left kidney 9 cm, and renal cortical thickness and ech ogenicity are normal. No hydronephrosis. No solid mass. He had bilateral renal cysts, on the left is 2.3 cm, appears to be benign cyst. The bladder was only partially filled and there was an irregul ar heterogeneous lobular prostate at the base of the bladder without any correlation for this. Patie nt does have some lower urinary tract symptomatology, frequent nocturia, and frequency during the day . He should be started on Flomax, if he is not already done so. As far as, his workup for prostate cancer is concerned, I would not venture to do this at this time with his age and medical condition, there is no need to do that. His life expectancy is less than 10 years. Allergies: NO KNOWN DRUG ALLERGIES. Home Medications: Levothyroxine, aspirin. Past Medical History: Hypertension, hyperkalemia, multiple skin cancers with myelofibrosis to the aleksey ne. Family History: Noncontributory. Social History: No alcohol. No drug use. Review of Systems: Ten-point review of systems, otherwise negative as mentioned above. Physical Examination: General: Patient was afebrile and oriented x3, and cathectic. HEENT: Normocephalic. Neck: Supple. Respiratory: Clear. Cardiovascular: S1, S2. Gastrointestinal: Normal bowel sounds. Skin: No rashes. Neurologic: Normal speech. Lymphatics: No axillary lymphadenopathy. : Both testicles descended and normal. Phallus normal. MEGAN: Revealed an enlarged prostate, possible 40 to 60 g prostate, a benign feeling. Did not feel [address]. Laboratory Data: Revealed an elevated WBC 60,000, H and H of 9 and 27, platelets 1,391,000. [employer] ry shows creatinine 1.9, BUN 45. Potassium is elevated at 6.3 on admission. Assessment And Plan: 1.Benign prostatic hypertrophy, enlarged prostate. Begin Flomax. 2.Myeloproliferative disorder. See oncology. 3.Pneumonia. Continue management. 4.Skin cancer. Continue management. 5.Hyperkalemia. Continue management. 6.Acute renal failure. Continue management. 7.Anemia. Continue management. Based on the patient's age and medical condition, I would not try to work this patient up for prostat e cancer at this time. I will treat him conservatively. He has a lot of other more important person al issues. Prostate cancer takes about 10 years to affect the person, and it is not worth working up the person unless they have greater than 10-year life expectancy, which I do not believe we have in this case. We know that the patient is 88 years old with multiple medical problems. JULIA/BHASKAR Voice ID: [id number] Report ID: [id number]
--- NOTE | 2019-04-26 23:37 | PN ---
Date of Progress Note: 04/26/2019 History: Patient seen and examined. Chart reviewed and case discussed with RN. Son at the bedside. Treatment plan explained, all questions answered. The patient still appears somewhat lethargic and has decreased appetite. No acute events overnight. Code Status: Full. Medications: List reviewed. Physical Examination: Vital Signs: Temperature 98.8, heart rate 69, blood pressure 129/44, respirations 18, O2 98% on room air. General: Awake, alert, oriented x3. Elderly male, frail, cachectic. BMI 17. Somewhat ill-appearin g elderly male. CV: S1, S2. Regular rate and rhythm. Peripheral pulses weak. RESPIRATORY: Moving air well bilaterally. Diminished breath sounds at the bases. No wheezing or st ridor. Gastrointestinal: Abdomen is soft, nontender, nondistended. Positive bowel sounds. No guarding or rigidity. Extremities: No clubbing, cyanosis, or any significant edema. Neuro: Cranial nerves 2 through 12 intact grossly. No focal neurological deficit. Patient however, has some generalized weakness. Speech is normal. Laboratory Data: Sodium 145, potassium 3.7, chloride 113, CO2 26, BUN 15, creatinine 1.35, glucose 9 4, calcium 7.4. WBC 29.1, H and H 8.2 and 24.4, platelets 488. Blood cultures, no growth to date. Stool occult blood is negative. Urine culture, no growth. Assessment: 88-year-old male with; 1.Acute myeloproliferative disorder. WBC count and platelets have come down to around his baseline. Patient follows with [facility] at [facility]. Appreciate Dr. Clark's input. 2.Pneumonia, left lower lobe, improving. No elevated temperatures. Patient does not appear to be s eptic. Continue antibiotics. Cultures are negative to date. 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 Follows with [facility] at [facility]. 4.Hyperkalemia, corrected. We will continue to monitor potassium level. 5.Acute kidney injury. Creatinine has improved close to normal. We will continue to monitor and av oid NSAIDs, nephrotoxins. 6.Anemia status post 1 unit PRBCs, likely related to his myeloproliferative disorder. Plan: Patient does have significant generalized weakness, diffuse myopathy. We will have PT evaluat ion. Last eval was on the . Patient was able to ambulate with a walker, however, according to th e son, patient seems to be very lethargic and not able to ambulate significantly. May need to be set up with home health with PT. YADIRA Voice ID: [id number] Report ID: [id number]
--- NOTE | 2019-04-27 02:26 | PN ---
Date of Progress Note: 04/26/2019 Subjective: Hyperkalemia, prerenal azotemia. Potassium level has improved. Patient has had renal u ltrasound done, which showed enlargement of the prostate. Patient is started on Flomax. He denies w orsening of the lower urinary tract symptoms. Hyperkalemia was treated. Patient did not have metabolic acidosis. Potassium level improved from 6. 3 to 4.1. Patient developed prerenal azotemia and was treated with IV fluids. Renal function improved to baseline. Review of Systems: Denies fever or chills. Physical Examination: Lungs: Few crackles at bases. Heart: S1, S2. Abdomen: Soft. Benign. Extremities: No edema. Impression And Plan: 1.Hyperkalemia, resolved. Continue low-potassium diet. Monitor electrolytes and renal panel. 2.Patient developed prerenal azotemia. Continue adequate hydration. Creatinine level improved from 1.86 to 1.3. Continue adequate p.o. fluid intake. Renal ultrasound did not show hydronephrosis. P atient although will continue follow up with urologist for benign prostatic hyperplasia. 3.Myeloproliferative disorder. Patient will follow up with Oncology. BEAU/MODL Voice ID: [id number] Report ID: [id number]
--- NOTE | 2019-04-28 02:29 | DS ---
Date of Discharge: 04/26/2019 Consultants: 1.Dr. Rivero and Dr. Chiu with Nephrology. 2.Dr. Maria with Urology. 3.Dr. Clark with Oncology. Admitting Diagnoses: 1.Myeloproliferative disorder. 2.Pneumonia. 3.History of skin cancer. 4.Hyperkalemia. 5.Acute kidney injury. 6.Anemia. Discharge Diagnoses: 1.Acute myeloproliferative disorder. 2.Pneumonia, left lower lobe. 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 4.Hyperkalemia. 5.Acute kidney injury, improved. 6.Anemia, status post 1 unit of PRBC transfusion. 7.Enlarged prostate. 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 His usual baseline white blood cell count is 23,000. He has not been on treatment for the myelofibrosis. However, upon admis melissa, his white blood cell count was elevated to 60,000. Platelets were 1,391,000. He also had some hyperkalemia and acute kidney injury. Patient was admitted to the hospital. He was started on IV f luids. His hyperkalemia improved with hyperkalemia cocktail treatment. His kidney function also imp roved over the course of the hospital stay with IV fluids. He was seen by multiple specialists inclu ding Nephrology and Oncology as well as Urology. Patient was started on Flomax due to his enlarged p rostate. No further workup for prostate cancer was initiated or recommended by the urologist due to the patient's life expectancy being less than 10 years. Overall, patient did well. His white blood cell count came back down to around 29,000, which is around his baseline. He did require 1 unit of t ransfusion due to his anemia likely stemming from the myelofibrosis. His blood cultures were negativ e. Final urine culture did not show any growth. His stool occult blood was also negative. Patient was doing well with physical therapy. He ambulated well with his walker. No recommendations for nicolette e PT. His peripheral blood smear was also done showed leukocytosis, absolute neutrophilia, and left shift microcytic hyperchromic anemia with anisopoikilocytosis and thrombocytosis. Patient will resum e his care at [facility] for his myeloproliferative disorder and continued followup fo r his skin cancer with metastases to the lungs. Overall, the patient is very cachectic, has lost sig nificant amount of weight, has decreased p.o. intake and appetite seems to be declining fairly rapidl y due to his chronic medical conditions, now with myelofibrosis. Overall, patient has a poor prognos is. Patient was then discharged home in a fair condition. Activity: As tolerated. Fall precautions. Ambulate with walker. Diet: Heart healthy. Followup: Follow up with primary care physician in 2-3 days. Follow up with oncologist at [facility] in 2 weeks. Follow up with termite treater, Dr. Rivero, in 2 weeks. Return to ER for worsening condit ion. Follow up with Dr. Maria, urologist, as needed. Medications: As per medication reconciliation list. Physical Examination: For physical exam findings, please see progress note dictated on the day of discharge. Total time spent discharging the patient was 33 minutes. /BHASKAR Voice ID: [id number] Report ID: [id number]
== END 2019-04-26 19:30 | disposition home or self-care (01) | DRG 840 ==
LOC: ER 10:57 → ERHOLD 16:17 → 4TH 17:04
PROVIDERS: ADMIT Internal Medicine; ATTEND Internal Medicine
PROC: 30233N1 Transfusion of Nonautologous Red Blood Cells into Peripheral Vein, Percutaneous Approach (ICD-10-PCS; principal; 2019-04-25)
DX: C94.6 Myelodysplastic disease, not elsewhere classified (principal); J18.9 Pneumonia, unspecified organism; C78.00 Secondary malignant neoplasm of unspecified lung; R64 Cachexia; Z68.1 Body mass index [BMI] 19.9 or less, adult; N17.9 Acute kidney failure, unspecified; E87.5 Hyperkalemia; D64.9 Anemia, unspecified; E03.9 Hypothyroidism, unspecified; N40.0 Benign prostatic hyperplasia without lower urinary tract symptoms; R79.89 Other specified abnormal findings of blood chemistry; I12.9 Hypertensive chronic kidney disease with stage 1 through stage 4 chronic kidney disease, or unspecified chronic kidney disease; N18.3 Chronic kidney disease, stage 3 (moderate); Z86.19 Personal history of other infectious and parasitic diseases; Z85.828 Personal history of other malignant neoplasm of skin; R62.7 Adult failure to thrive
CPT/HCPCS: 36415; 36430; 71045; 76770; 80048; 80061; 80076; 81003; 81015; 82274; 83540; 83605; 83735; 83880; 84100; 84132; 84145; 84439; 84443; 84466; 84484; 84550; 85014; 85018; 85025; 85610; 86850; 86900; 86901; 87040; 87086; 87088; 93005; 94640; 94760; 96365; 96375; 97116; 97161; 99285; J0456; J0610; J0696; J1650; J1940; J7030; J7040; P9016